=== PATIENT | female | born 1935 | race Caucasian/White ===

== ENCOUNTER 2017-03-03 14:33 | Inpatient (IN) | payer OTHER ==
[~2017-03-03] VITALS: Ht 160 cm; Wt 53.5 kg
[2017-03-03] MEDS ORDERED: IV NORMAL SALINE 500ML BAG 500 ML IV ONE (14:45)
[2017-03-03] MEDS ORDERED: IPRATRPIUM/ALBUTEROL 0.5/2.5MG 3 ML NEBU. NEB ONE (14:45)
--- NOTE | 2017-03-03 14:57 | PHYS DOC ---
Adult General Chief Complaint Chief Complaint: SHORTNESS OF BREATH HPI HPI 81-year-old female presenting to the emergency department today with worsening cough shortness of breath. She was originally seen in urgent care who transferred her here and she presents today by EMS. She has received duo nebs twice at urgent care along with 125 mg of IV Solu-Medrol. Her shortness of breath is worse with exertion improved with rest. It is associated with a productive cough. She is coughing up green sputum. She denies noting any fevers at home however hasn't taken her temperature. Review of systems is negative for chest pain abdominal pain nausea vomiting diarrhea. All other review of systems is negative unless otherwise noted in history of present illness. Review of Systems Review of Systems SEE ABOVE. Current Medications Current Medications Current Medications Medications (Trade) Dose Ordered Sig/Maximino Start Time Stop Time Status Last Admin Dose Admin Albuterol/ Ipratropium 3 ml 3 ml 1X ONCE 03/03/17 14:45 03/03/17 15:22 DC 03/03/17 15:12 3 ML Azithromycin 250 ml @ 250 mls/hr 1X ONCE 03/03/17 15:30 03/03/17 16:29 Ceftriaxone Sodium 50 ml @ 100 mls/hr 1X ONCE 03/03/17 15:30 03/03/17 15:59 Morphine Sulfate 2 mg PRN Q2HR PRN 03/03/17 15:30 03/04/17 15:29 Ondansetron HCl (Zofran) 4 mg PRN Q8HRS PRN 03/03/17 15:30 03/04/17 15:29 Sodium Chloride (Iv Sodium Chloride 0.9% 500ml Bag) 500 ml @ 500 mls/hr 1X ONCE 03/03/17 14:45 03/03/17 15:44 Allergies Allergies Allergies Coded Allergies Type Severity Reaction Last Updated Verified No Known Drug Allergies 03/03/17 No Physical Exam Physical Exam Constitutional: Well developed, well nourished, no acute distress, non-toxic appearance. Patient is breathing comfortably in the examination room on 3 L nasal cannula. Patient is not carry oxygen at home. HENT: Normocephalic, atraumatic, bilateral external ears normal, oropharynx moist, no oral exudates, nose normal. [] Eyes: PERRLA, EOMI, conjunctiva normal, no discharge. [] Neck: Normal range of motion, no tenderness, supple, no stridor. Cardiovascular: Tachycardic with a regular rhythm., no murmur [] Lungs & Thorax: Wheezing present worse on the right. No crackles. Abdomen: Bowel sounds normal, soft, no tenderness, no masses, no pulsatile masses. [] Skin: Warm, dry, no erythema, no rash. Back: No tenderness, no CVA tenderness. [] Extremities: No tenderness, no cyanosis, no clubbing, ROM intact, no edema. [] Neurologic: Alert and oriented X 3, normal motor function, normal sensory function, no focal deficits noted. [] Psychologic: Affect normal, judgement normal, mood normal. [] Current Patient Data Vital Signs Vital Signs Date Time Temp Pulse Resp B/P Pulse Ox O2 Delivery O2 Flow Rate FiO2 03/03/17 15:12 95 Nasal Cannula 3.0 EKG EKG [] Radiology/Procedures Radiology/Procedures Chest x-ray taken on March [id number] at approximately 1340 at urgent care clinic [facility] sent along with the patient here reviewed by myself shows right lower lobe pneumonia. Course & Med Decision Making Course & Med Decision Making Pertinent Labs and Imaging studies reviewed. (See chart for details) [] 81-year-old female presenting to the emergency department today after having shortness of breath and cough. Signs and symptoms initially suggestive of possible pneumonia. Vital signs showed that the patient was tachycardic and saturating in the low 90s on 3 L nasal cannula. Pertinent physical exam findings showed wheezing on pulmonary auscultation more on the right than the left. Chest x-ray confirms right lower lobe pneumonia Patient was ordered a DuoNeb in the emergency department, she received IV steroids prior to arrival, and I ordered her antibiotics given her productive cough tachycardia. Dragon Disclaimer Dragon Disclaimer This electronic medical record was generated, in whole or in part, using a voice recognition dictation system. Departure Departure Impression: Primary Impression: PNA (pneumonia) Additional Impression: Sepsis Disposition: 09 ADMITTED INPATIENT Admitting Physician: Jorge A Marquez Condition: STABLE Referrals: HARRY MARQUEZ MD (PCP) Problem Qualifiers Primary Impression: PNA (pneumonia) Pneumonia type: due to unspecified organism Laterality: right Lung location : lower lobe of lung Qualified Code: J18.1 - Lobar pneumonia, unspecified organism MAI JIMÉNEZ MD Mar 03, 2017 14:57
[2017-03-03] MEDS ORDERED: IPRATRPIUM/ALBUTEROL 0.5/2.5MG 3 ML NEBU. ONE (15:11)
[2017-03-03 15:24] LABS: BASO # 0.1 x10^3/uL (0.0-0.2); BASO % 0 % (0-3); EOS % 0 % (0-3); HEMATOCRIT 47.9 % (36.0-47.0); HEMOGLOBIN 15.8 g/dL (12.0-15.5); LYMPH % 6 % (24-48); MEAN CORPUSCULAR HEMOGLOBIN 30 pg (25-35); MEAN CORPUSCULAR HGB CONC 33 g/dL (31-37); MEAN CORPUSCULAR VOLUME 90 fL (79-100); MONO % 6 % (0-9); NEUT % 87 % (31-73); PLATELET COUNT 309 x10^3/uL (140-400); RED BLOOD COUNT 5.31 x10^6/uL (3.50-5.40); RED CELL DISTRIBUTION WIDTH 13.2 % (11.5-14.5); WHITE BLOOD COUNT 15.9 x10^3/uL (4.0-11.0)
--- NOTE | 2017-03-03 15:28 | EKG ---
[facility] [address] [place] [address] Test Date: 2017-03-03 Test Time: 15:07:33 Pat Name: AKSHAT HACKETT Department: Room: Gender: F [employer]: : 1935 Requested By: MAI JIMÉNEZ Order Number: [id number] Reading MD: Zhen Sinha Measurements Intervals [place] Rate: 118 P: 67 NE: 122 QRS: 5 QRSD: 66 T: 34 QT: 322 QTc: 454 Interpretive Statements SINUS TACHYCARDIA PAC Electronically Signed On 03-04-2017 9:55:10 CDT by Zhen Sinha
[2017-03-03] MEDS ORDERED: AZITHRMYCN 500MG IVPB FOR OMNI 250 ML IV ONE (15:30)
[2017-03-03] MEDS ORDERED: MORPHINE SULFATE 2 MG/ML DISP.SYRIN. IV PRN (15:30)
[2017-03-03] MEDS ORDERED: CEFTRIAXONE 1GM IVPB FOR OMNI 50 ML IV ONE ×2 (15:30→16:45)
[2017-03-03] MEDS ORDERED: ONDANSETRON PF 4 MG/2 ML VIAL. IV PRN (15:30)
[2017-03-03 15:47] LABS: CALCIUM 9.9 mg/dL (8.5-10.1); CREATININE 0.8 mg/dL (0.6-1.0); GFR 68.7; POTASSIUM 3.8 mmol/L (3.5-5.1)
[2017-03-03 15:52] LABS: ALBUMIN 3.8 g/dL (3.4-5.0); DIRECT BILIRUBIN 0.2 mg/dL (0.0-0.2); TOTAL BILIRUBIN 0.6 mg/dL (0.2-1.0); TOTAL PROTEIN 8.7 g/dL (6.4-8.2)
--- NOTE | 2017-03-03 16:36 | ACF ---
Admission Forms Criteria PNEUMONIA, COMMUNITY ACQUIRED Clinical Indications for Admission to Inpatient Care ( Place 'X' for any and all applicable criteria): Admission is indicated for ANY ONE of the following (1)(2)(3): [ ]I. Hypoxemia indicated by ANY ONE of the following: [ ]a) Oxygen saturation less than 90% while breathing room air [ ]b) PO2 less than 60 mm Hg (8.0 kPa) while breathing room air [ ]c) Chronic lung disease with significant deterioration from baseline oxygenation [ ]II. Appropriate diagnostic testing and treatment unavailable in outpatient or recovery facility (eg,testing or infection control measures unavailable(10) [ ]III. Moderate-risk or high-risk category patients (Pneumonia Severity Index (PSI) class IV or V, or CURB-65 score of 3 or greater). [ ]IV. Outpatient treatment failure as indicated by ANY ONE of the following(9) : [ ]a) Failure to respond to antibiotic (eg, resistant organism) [ ]b) Clinically significant adverse effects from medication (eg, vomiting) [ ]c) Complications of pneumonia (eg, empyema, bacteremia) [ ]d) Significant worsening of comorbid cond necessitating inpatient care (eg, chronic heart failure) [X]V. Intermediate-risk category patients (eg, PSI class III or CURB-65 score 2) who do not improve with initial therapy and observation. [ ]. Immunocompromised patients (eg, AIDS, chronic steroid use) at moderate or high risk based on clinical evaluation. [ ]VII. Complicated pleural effusions (eg, exudative, loculated) [ ]VIII.Hemodynamic instability [ ] IX. Altered mental status that is severe or persistent. [ ]X. Dehydration that is severe or persistent. [ ]XI. Bacteremia [ ]XII. Respiratory finding (eg. tachypnea) that do not respond to outpatient or observation care treatment Extended stay beyond goal length of stay may be needed for (20) [ ]a) Unclear diagnosis [ ]b) Pleural disease [ ]c) Severe pneumonia or treatment failure (25 [ ]d) Respiratory failure (anticipate invasive or noninvasive ventilatory support) [ ]e) Abnormal serum electrolytes (serum Na concentration less than 135 mEq/L (mmol/L) (32)(33) [ ]f) Clinically significant comorbid illness (eg, heart failure, atrial fibrillation with rapid heart rate, alcohol withdrawal, renal insufficiency)(34)(35) [ ]g) Comorbid acute exacerbation of COPD(36) [ ]h) Concomitant diagnosis of malignancy that may be associated with malnutrition, immunologic impairment, or bronchial obstruction. [ ]i) Concomitant altered mental status [ ]j) Culture-identified Gram-negative or antibiotic-resistant organism (eg, Pseudomonas, methicillin-resistant Staphylococcus aureus)(30) [ ]k) Healthcare-associated pneumonia The original [facility] content created by [employer] has been revised. The portions of the content which have been revised are identified through the use of italic text or in bold, and [facility] has neither reviewed nor approved the modified material. All other unmodified content is copyright [facility]. Please see references footnoted in the original [facility] edition 2016 Admission Criteria Met?: Yes MARTINE CELAYA Mar 03, 2017 16:36
[2017-03-03] MEDS ORDERED: ACETAMINOPHEN 325 MG TABLET. PO ONE (17:15)
[2017-03-03 17:44] LABS: % BASOS 3 % (0-3)
[2017-03-03 17:45] LABS: POLYCHROMASIA SLIGHT
[2017-03-03 17:47] LABS: HYPOCHROMIA SLIGHT; OVALOCYTES OCC
[2017-03-03 18:05] LABS: PLT ESTIMATE ADEQUATE (ADEQUATE)
[2017-03-03] MEDS ORDERED: ALBUTEROL SULFATE 2.5 MG/3 ML NEBU. NEB PRN (19:15)
[2017-03-03] MEDS: IPRATRPIUM/ALBUTEROL 0.5/2.5MG 3 ML NEBU. NEB SCH (20:02)
[2017-03-03] MEDS: methylPREDNISolone SOD SUCC PF 125 MG/2 ML VIAL. IV SCH (21:11)
[2017-03-03 22:00] VITALS: BP 114/53
[2017-03-03 23:00] VITALS: BP 118/81
[2017-03-03] MEDS ORDERED: CHOL100013 PO (23:25)
[2017-03-03] MEDS ORDERED: ASPI-482 PO (23:25)
[2017-03-03] MEDS ORDERED: LOVA20TA2 PO (23:26)
[2017-03-03] MEDS ORDERED: ALEN70TA3 PO (23:28)
[2017-03-04 03:00] VITALS: BP 110/76
[2017-03-04 04:26] LABS: BASO % 0 % (0-3); EOS % 0 % (0-3); HEMATOCRIT 37.6 % (36.0-47.0); HEMOGLOBIN 12.5 g/dL (12.0-15.5); LYMPH # 1.3 x10^3/uL (1.0-4.8); LYMPH % 8 % (24-48); MEAN CORPUSCULAR HEMOGLOBIN 30 pg (25-35); MEAN CORPUSCULAR HGB CONC 33 g/dL (31-37); MEAN CORPUSCULAR VOLUME 89 fL (79-100); MONO % 4 % (0-9); NEUT % 88 % (31-73); PLATELET COUNT 279 x10^3/uL (140-400); RED BLOOD COUNT 4.22 x10^6/uL (3.50-5.40); RED CELL DISTRIBUTION WIDTH 13.2 % (11.5-14.5); WHITE BLOOD COUNT 16.8 x10^3/uL (4.0-11.0)
[2017-03-04 04:40] LABS: CREATININE 0.7 mg/dL (0.6-1.0); GFR 80.1; POTASSIUM 3.9 mmol/L (3.5-5.1)
[2017-03-04] MEDS: IPRATRPIUM/ALBUTEROL 0.5/2.5MG 3 ML NEBU. NEB SCH ×4 (06:50→18:03)
[2017-03-04 07:00] VITALS: BP 105/52
[2017-03-04] MEDS: methylPREDNISolone SOD SUCC PF 125 MG/2 ML VIAL. IV SCH ×2 (09:00→21:02)
--- NOTE | 2017-03-04 09:30 | PDOC ---
Provider Note Provider Note dictated THAI MCKEON MD Mar 04, 2017 09:30
[2017-03-04] MEDS: AZITHROMYCIN 250 MG TABLET. PO SCH (10:00)
--- NOTE | 2017-03-04 10:31 | CONS ---
DATE OF CONSULTATION: ATTENDING PHYSICIAN: Dr. Isadora Bernal REASON FOR CONSULTATION: Pneumonia and hypoxia, respiratory failure. HISTORY OF PRESENT ILLNESS: The patient is an 81-year-old female who has been a smoker for 25 years. She quit 20 years ago. She started having a cough for the last 4-5 days, which has been mostly productive of white sputum. No obvious fever. She was seen at the urgent care with some shortness of breath with coughing as well. The patient had a chest x-ray done at that facility and was told that she had a right lower lobe pneumonia. The ER physician had reviewed the chest x-ray. She has been hospitalized. There is no x-ray available for my review and it will be ordered. She was placed on nebulizer treatments. She received a dose of Rocephin and Zithromax and has been placed on IV steroids. She feels better currently requiring about 2 liters of oxygen. No history of deep vein thrombosis or pulmonary embolism. No headache. No nausea, vomiting or diarrhea. No focal weakness. PAST MEDICAL HISTORY: Significant for possible underlying COPD. PAST SURGICAL HISTORY: No recent surgeries. ALLERGIES: None. CURRENT MEDICATIONS: Reviewed as listed in the MRAD. REVIEW OF SYSTEMS: Twelve-point systems obtained. Pertinent positives discussed in history of present illness, otherwise noncontributory. All systems that were negative were reviewed as well. SOCIAL HISTORY: Smoked for 25 years before quitting 20 years ago. FAMILY HISTORY: Noncontributory to lungs. PHYSICAL EXAMINATION: VITAL SIGNS: Blood pressure 105/52, afebrile, pulse ox 91% on 2 liters. HEENT: Sclerae nonicteric. NECK: Supple. LUNGS: Diminished breath sounds. No wheezing. CARDIOVASCULAR: Regular rate and rhythm. ABDOMEN: Soft, nontender. EXTREMITIES: With no pitting edema. LABORATORY DATA: Reviewed. White cell count was 15.9 on admission, hemoglobin 15.9 and platelets 47.9. Hemoglobin has dropped to 12.2 today. BUN is 15, and creatinine 0.8. Troponin less than 0.017. IMPRESSION: 1. Dyspnea with acute hypoxic respiratory failure secondary to suspected right lower lobe pneumonia as seen on the chest x-ray done at urgent care facility yesterday. 2. Underlying chronic obstructive pulmonary disease with mild exacerbation. RECOMMENDATIONS: 1. Obtain a chest x-ray. 2. Continue present antibiotics. 3. Wean off oxygen slowly, keep sats 92 and above. 4. Continue with nebulizer treatment. 5. Continue with steroids. 6. Anticipated hospitalization for 48 hours. I appreciate the privilege in providing care of the patient. THAI MCKEON MD DR: ARNOLDO/jorge JOB#: [id number] / [id number] ISADORA Smart MD
--- NOTE | 2017-03-04 10:50 | PDOC ---
PROGRESS NOTES Subjective Subjective Pt awake and pleasant in conversation this am. States labored breathing has improved some. Continues to c/o productive cough and SOB with exertion. Pt states she has a poor appetite, however is eating some. Objective Objective Pt awake and alert. NAD. VSS. Afebrile since admission. Lungs with loose rhonchi and exp wheeze on the right. Resp even and unlabored. Pt on 2L of O2 per NC. Heart with RRR. No murmurs. No pedal edema. Vital Signs Date Time Temp Pulse Resp B/P Pulse Ox O2 Delivery O2 Flow Rate FiO2 03/04/17 08:00 Nasal Cannula 2.0 03/04/17 07:00 97.2 94 20 105/52 91 97.2 Intake and Output 03/04/17 06:59 Intake Total 1400 ml Balance 1400 ml Intake Oral 600 ml IV Total 800 ml # Voids 1 Assessment Assessment Problems Medical Problems: (1) CAP (community acquired pneumonia) Status: Acute (2) PNA (pneumonia) Status: Acute (3) Sepsis Status: Acute Plan Plan of Care 1. CAP -CXR: right lower lobe pneumonia -WBC 16K this am -Rocephin, Zithromax, Duonebs and Solu Medrol -Pt on 2L of O2 per NC to maintain sats >90% Comment Review of Relevant I have reviewed the following items elodia (where applicable) has been applied. Labs Laboratory Tests Test 03/03/17 14:20 03/04/17 03:46 03/04/17 04:30 White Blood Count 15.9x10^3/uL (4.0-11.0) 16.8x10^3/uL (4.0-11.0) Red Blood Count 5.31x10^6/uL (3.50-5.40) 4.22x10^6/uL (3.50-5.40) Hemoglobin 15.8g/dL (12.0-15.5) 12.5g/dL (12.0-15.5) Hematocrit 47.9% (36.0-47.0) 37.6% (36.0-47.0) Mean Corpuscular Volume 90fL (79-100) 89fL (79-100) Mean Corpuscular Hemoglobin 30pg (25-35) 30pg (25-35) Mean Corpuscular Hemoglobin Concent 33g/dL (31-37) 33g/dL (31-37) Red Cell Distribution Width 13.2% (11.5-14.5) 13.2% (11.5-14.5) Platelet Count 309x10^3/uL (140-400) 279x10^3/uL (140-400) Neutrophils (%) (Auto) 87% (31-73) 88% (31-73) Lymphocytes (%) (Auto) 6% (24-48) 8% (24-48) Monocytes (%) (Auto) 6% (0-9) 4% (0-9) Eosinophils (%) (Auto) 0% (0-3) 0% (0-3) Basophils (%) (Auto) 0% (0-3) 0% (0-3) Neutrophils # (Auto) 13.8x10^3uL (1.8-7.7) 14.8x10^3uL (1.8-7.7) Lymphocytes # (Auto) 1.0x10^3/uL (1.0-4.8) 1.3x10^3/uL (1.0-4.8) Monocytes # (Auto) 1.0x10^3/uL (0.0-1.1) 0.6x10^3/uL (0.0-1.1) Eosinophils # (Auto) 0.0x10^3/uL (0.0-0.7) 0.0x10^3/uL (0.0-0.7) Basophils # (Auto) 0.1x10^3/uL (0.0-0.2) 0.0x10^3/uL (0.0-0.2) Segmented Neutrophils % 78% (35-66) Lymphocytes % 13% (24-48) Monocytes % 6% (0-10) Basophils % 3% (0-3) Platelet Estimate Adequate (ADEQUATE) Large Platelets Occ Polychromasia Slight Hypochromasia Slight Ovalocytes Occ Sodium Level 141mmol/L (136-145) 143mmol/L (136-145) Potassium Level 3.8mmol/L (3.5-5.1) 3.9mmol/L (3.5-5.1) Chloride Level 101mmol/L (98-107) 107mmol/L (98-107) Carbon Dioxide Level 24mmol/L (21-32) 25mmol/L (21-32) Anion Gap 16 (6-14) 11 (6-14) Blood Urea Nitrogen 15mg/dL (7-20) 14mg/dL (7-20) Creatinine 0.8mg/dL (0.6-1.0) 0.7mg/dL (0.6-1.0) Estimated GFR (Cockcroft-Gault) 68.7 80.1 Glucose Level 171mg/dL (70-99) 215mg/dL (70-99) Lactic Acid Level 2.5mmol/L (0.4-2.0) Calcium Level 9.9mg/dL (8.5-10.1) 9.0mg/dL (8.5-10.1) Total Bilirubin 0.6mg/dL (0.2-1.0) Direct Bilirubin 0.2mg/dL (0.0-0.2) Aspartate Amino Transf (AST/SGOT) 24U/L (15-37) Alanine Aminotransferase (ALT/SGPT) 32U/L (14-59) Alkaline Phosphatase 91U/L (46-116) Troponin I Quantitative < 0.017ng/mL (0.000-0.055) IO-Kzf-T-Type Natriuretic Peptide 154pg/mL (0-449) Total Protein 8.7g/dL (6.4-8.2) Albumin 3.8g/dL (3.4-5.0) Lipase 160U/L (73-393) Laboratory Tests Test 03/03/17 14:20 03/04/17 03:46 03/04/17 04:30 White Blood Count 15.9x10^3/uL (4.0-11.0) 16.8x10^3/uL (4.0-11.0) Red Blood Count 5.31x10^6/uL (3.50-5.40) 4.22x10^6/uL (3.50-5.40) Hemoglobin 15.8g/dL (12.0-15.5) 12.5g/dL (12.0-15.5) Hematocrit 47.9% (36.0-47.0) 37.6% (36.0-47.0) Mean Corpuscular Volume 90fL (79-100) 89fL (79-100) Mean Corpuscular Hemoglobin 30pg (25-35) 30pg (25-35) Mean Corpuscular Hemoglobin Concent 33g/dL (31-37) 33g/dL (31-37) Red Cell Distribution Width 13.2% (11.5-14.5) 13.2% (11.5-14.5) Platelet Count 309x10^3/uL (140-400) 279x10^3/uL (140-400) Neutrophils (%) (Auto) 87% (31-73) 88% (31-73) Lymphocytes (%) (Auto) 6% (24-48) 8% (24-48) Monocytes (%) (Auto) 6% (0-9) 4% (0-9) Eosinophils (%) (Auto) 0% (0-3) 0% (0-3) Basophils (%) (Auto) 0% (0-3) 0% (0-3) Neutrophils # (Auto) 13.8x10^3uL (1.8-7.7) 14.8x10^3uL (1.8-7.7) Lymphocytes # (Auto) 1.0x10^3/uL (1.0-4.8) 1.3x10^3/uL (1.0-4.8) Monocytes # (Auto) 1.0x10^3/uL (0.0-1.1) 0.6x10^3/uL (0.0-1.1) Eosinophils # (Auto) 0.0x10^3/uL (0.0-0.7) 0.0x10^3/uL (0.0-0.7) Basophils # (Auto) 0.1x10^3/uL (0.0-0.2) 0.0x10^3/uL (0.0-0.2) Segmented Neutrophils % 78% (35-66) Lymphocytes % 13% (24-48) Monocytes % 6% (0-10) Basophils % 3% (0-3) Platelet Estimate Adequate (ADEQUATE) Large Platelets Occ Polychromasia Slight Hypochromasia Slight Ovalocytes Occ Sodium Level 141mmol/L (136-145) 143mmol/L (136-145) Potassium Level 3.8mmol/L (3.5-5.1) 3.9mmol/L (3.5-5.1) Chloride Level 101mmol/L (98-107) 107mmol/L (98-107) Carbon Dioxide Level 24mmol/L (21-32) 25mmol/L (21-32) Anion Gap 16 (6-14) 11 (6-14) Blood Urea Nitrogen 15mg/dL (7-20) 14mg/dL (7-20) Creatinine 0.8mg/dL (0.6-1.0) 0.7mg/dL (0.6-1.0) Estimated GFR (Cockcroft-Gault) 68.7 80.1 Glucose Level 171mg/dL (70-99) 215mg/dL (70-99) Lactic Acid Level 2.5mmol/L (0.4-2.0) Calcium Level 9.9mg/dL (8.5-10.1) 9.0mg/dL (8.5-10.1) Total Bilirubin 0.6mg/dL (0.2-1.0) Direct Bilirubin 0.2mg/dL (0.0-0.2) Aspartate Amino Transf (AST/SGOT) 24U/L (15-37) Alanine Aminotransferase (ALT/SGPT) 32U/L (14-59) Alkaline Phosphatase 91U/L (46-116) Troponin I Quantitative < 0.017ng/mL (0.000-0.055) DK-Wwo-L-Type Natriuretic Peptide 154pg/mL (0-449) Total Protein 8.7g/dL (6.4-8.2) Albumin 3.8g/dL (3.4-5.0) Lipase 160U/L (73-393) Medications Current Medications Albuterol/ Ipratropium 3 ml 3 ml 1X ONCE NEB Last administered on 03/03/17 15: 12; Start 03/03/17 at 14:45; Stop 03/03/17 at 15:22; Status DC Azithromycin 250 ml @ 250 mls/hr 1X ONCE IV Last administered on 03/03/17 15: 45; Start 03/03/17 at 15:30; Stop 03/03/17 at 16:29; Status DC Ceftriaxone Sodium 50 ml @ 100 mls/hr 1X ONCE IV Last administered on 17:09; Start 03/03/17 at 15:30; Stop 03/03/17 at 15:59; Status DC Sodium Chloride (Iv Sodium Chloride 0.9% 500ml Bag) 500 ml @ 500 mls/hr 1X ONCE IV Last administered on 03/03/17 15:44; Start 03/03/17 at 14:45; Stop at 15:44; Status DC Ondansetron HCl (Zofran) 4 mg PRN Q8HRS PRN IV NAUSEA/VOMITING; Start 03/03/17 at 15:30; Stop 03/04/17 at 15:29 Morphine Sulfate 2 mg 2 mg PRN Q2HR PRN IV PAIN; Start 03/03/17 at 15:30; Stop 03/04/17 at 15:29 Ceftriaxone Sodium (Rocephin 1gm Ivpb For Omni) 50 ml @ 100 mls/hr 1X ONCE IV ; Start 03/03/17 at 16:45; Stop 03/03/17 at 17:14; Status Cancel Acetaminophen (Tylenol) 650 mg 1X ONCE PO Last administered on 03/03/17 17:13 ; Start 03/03/17 at 17:15; Stop 03/03/17 at 17:16; Status DC Albuterol/ Ipratropium (Duoneb) 3 ml RTQID NEB Last administered on 03/04/17 06 :50; Start 03/03/17 at 20:00 Albuterol Sulfate (Ventolin Neb Soln) 2.5 mg PRN Q4HRS PRN NEB SHORTNESS OF BREATH Last administered on 03/03/17 23:13; Start 03/03/17 at 19:15 Methylprednisolone Sodium Succinate 62.5 mg 62.5 mg BID IV Last administered on 03/03/17 21:11; Start 03/03/17 at 20:00 Ceftriaxone Sodium/Sodium Chloride (Rocephin/Iv Sodium Chloride 0.9% 50ml) 50 ml @ 100 mls/hr Q24H IV ; Start 03/04/17 at 16:00 Azithromycin (Zithromax) 250 mg DAILY PO ; Start 03/04/17 at 10:00 Active Scripts Active Reported Fosamax (Alendronate Sodium) 70 Mg Tablet 1 Tab PO WEEKLY Lovastatin 20 Mg Tablet 20 Mg PO HS Vitamin D (Cholecalciferol (Vitamin D3)) 1,000 Unit Capsule 1 Cap PO DAILY Aspir 81 (Aspirin) 81 Mg Tablet. 1 Tab PO DAILY Vitals/I & O Vital Sign - Last 24 Hours 03/03/17 03/03/17 03/03/17 03/03/17 14:40 15:12 15:17 15:47 Temp 98.8 98.8 Pulse 123 116 112 Resp 18 13 20 B/P 157/67 139/72 130/62 Pulse Ox 94 95 95 96 O2 Delivery Nasal Cannula Nasal Cannula Nasal Cannula Nasal Cannula O2 Flow Rate 2 3.0 2 2 03/03/17 03/03/17 03/03/17 03/03/17 16:17 16:47 17:41 17:47 Pulse 110 110 116 112 Resp 13 20 21 12 B/P 133/60 117/56 108/53 114/53 Pulse Ox 95 97 95 94 O2 Delivery Nasal Cannula Nasal Cannula Nasal Cannula Nasal Cannula O2 Flow Rate 2 2 2 2 03/03/17 03/03/17 03/03/17 03/03/17 20:04 21:32 22:00 23:00 Temp 98.8 97.6 98.8 97.6 Pulse 112 96 Resp 18 B/P 114/53 118/81 Pulse Ox 92 92 94 O2 Delivery Nasal Cannula Nasal Cannula Nasal Cannula Nasal Cannula O2 Flow Rate 2.0 2.0 2.0 2.0 03/03/17 03/04/17 03/04/17 03/04/17 23:13 03:00 06:55 07:00 Temp 98.0 97.2 98.0 97.2 Pulse 98 94 Resp 20 20 B/P 110/76 105/52 Pulse Ox 93 93 94 91 O2 Delivery Nasal Cannula Nasal Cannula Room Air Nasal Cannula O2 Flow Rate 2.0 2.0 2.0 03/04/17 08:00 O2 Delivery Nasal Cannula O2 Flow Rate 2.0 Intake and Output 03/03/17 03/03/17 03/04/17 14:59 22:59 06:59 Intake Total 800 ml 600 ml Balance 800 ml 600 ml ISADORA GARCIA MD Mar 04, 2017 10:50
--- NOTE | 2017-03-04 11:17 | HP ---
ADMIT DATE: 03/03/2017 CHIEF COMPLAINT AND HISTORY OF PRESENT ILLNESS: This is an 81-year-old female who is a patient of Dr. Yudith Hunt, which I will be following throughout her hospital stay. The patient presented to the Emergency Room following an urgent care visit for shortness of breath and hypoxia. The patient presented to the Urgent Care complaining of a 10-day history of not feeling well and a 4-to 5-day history of progressive shortness of breath with exertion and activities of daily living. Upon evaluation in the Urgent Care, the patient was found to have a right lower lobe pneumonia. Oxygen saturations were low, and the patient was given 2 DuoNeb treatments at the Urgent Care, was unable to maintain saturations greater than 90%, and therefore, the patient was transferred to our Emergency Room by ambulance. Upon evaluation in the Emergency Room, the right lower lobe pneumonia was confirmed. A WBC of 15,000 was identified. The patient was given Solu-Medrol as well as a repeat DuoNeb treatment in the Emergency Room and was admitted to the hospital for community-acquired pneumonia. PAST MEDICAL HISTORY: COPD. PAST SURGICAL HISTORY: No recent surgeries. ALLERGIES: No known drug allergies. REVIEW OF SYSTEMS: As mentioned above. PHYSICAL EXAMINATION: GENERAL: The patient is a well-developed, well-nourished, 81-year-old female who is in no apparent distress on the morning of my examination. VITAL SIGNS: Stable. She has been afebrile since admission. HEENT: Head, Eyes, Ears, Nose, and Throat are unremarkable. NECK: Supple without adenopathy or thyromegaly. CHEST: Loose rhonchi and an expiratory wheeze are present in the right lung bases. The patient is currently on O2 at 2 liters per nasal cannula to maintain the saturations greater than 90%. Respirations are even and unlabored without retractions present. HEART: Regular rate and rhythm without S3, S4, or murmur. ABDOMEN: Soft, nontender without hepatosplenomegaly or mass. NEUROLOGIC: Grossly intact. IMPRESSION: Community-acquired pneumonia in the right lower lung. PLAN: The patient has been admitted as mentioned above. IV Rocephin and Zithromax have been initiated. The patient will continue on DuoNeb treatments as well as Solu-Medrol. The patient will receive O2 per nasal cannula to maintain saturations greater than 90%. Pulmonology has been consulted. We will continue to monitor, manage, and treat the patient appropriately throughout her hospital stay. ISADORA GARCIA MD DR: GARRY/jorge JOB#: [id number] / [id number]
[2017-03-04 11:28] VITALS: BP 105/58
[2017-03-04] MEDS: CEFTRIAXONE SODIUM 1 GM in IV NORMAL SALINE 50ML 50 ML IV SCH (14:48)
[2017-03-04 14:49] VITALS: BP 107/57
--- NOTE | 2017-03-04 15:06 | RAD ---
Portable chest, 03/04/2017: History: Pneumonia Comparison is made to a study from 01/17/2012. The heart size is normal. There is calcific plaquing of the aorta. There is minimal parenchymal scarring. No acute infiltrate is seen. There is no evidence of pleural fluid. IMPRESSION: No acute cardiopulmonary abnormality is detected.
[2017-03-04 19:00] VITALS: BP 110/60
[2017-03-04 23:00] VITALS: BP 117/64
[2017-03-05 03:17] VITALS: BP 115/77
[2017-03-05 07:00] VITALS: BP 128/64
[2017-03-05] MEDS: IPRATRPIUM/ALBUTEROL 0.5/2.5MG 3 ML NEBU. NEB SCH ×4 (07:01→19:38)
[2017-03-05 07:04] LABS: HEMATOCRIT 36.8 % (36.0-47.0); HEMOGLOBIN 12.1 g/dL (12.0-15.5); RED BLOOD COUNT 4.1 x10^6/uL (3.50-5.40); RED CELL DISTRIBUTION WIDTH 13.2 % (11.5-14.5); WHITE BLOOD COUNT 22.4 x10^3/uL (4.0-11.0)
[2017-03-05] MEDS: AZITHROMYCIN 250 MG TABLET. PO SCH (08:46)
[2017-03-05] MEDS: methylPREDNISolone SOD SUCC PF 125 MG/2 ML VIAL. IV SCH ×2 (08:46→21:02)
--- NOTE | 2017-03-05 11:04 | PDOC ---
PROGRESS NOTES Subjective Subjective Pt awake and pleasant. States she is feeling better, however continues to c/o weakness and bad cough. Pt states her appetite is returning and her output has been good. Objective Objective Pt awake and alert. NAD. VSS. Febrile with tmax of 99.5. Lungs with loose rhonchi and mild expiratory wheeze. Resp even and unlabored. Pt on 2L of O2 per NC. Heart with RRR. No murmurs. Vital Signs Date Time Temp Pulse Resp B/P Pulse Ox O2 Delivery O2 Flow Rate FiO2 03/05/17 07:02 92 Nasal Cannula 2.0 03/05/17 07:00 98.1 93 18 128/64 98.1 Intake and Output 03/05/17 07:00 Intake Total 1080 ml Output Total 800 ml Balance 280 ml Intake Oral 1030 ml IV Total 50 ml Output Urine Total 800 ml # Voids 4 Assessment Assessment Problems Medical Problems: (1) CAP (community acquired pneumonia) Status: Acute (2) PNA (pneumonia) Status: Acute (3) Sepsis Status: Acute Plan Plan of Care 1. CAP -CXR at : right lower lobe pneumonia. Repeat CXR on 03/04:No acute cardiopulmonary abnormality is detected. -WBC 22K this am, trending up -Blood cx negative to date. -Rocephin, Zithromax, Duonebs and Solu Medrol -Tessalon pearles 200mg tid prn cough -Pt on 2L of O2 per NC to maintain sats >90% -Pulmonary consulting PT consulted to begin mobilizing pt. Comment Review of Relevant I have reviewed the following items elodia (where applicable) has been applied. Labs Laboratory Tests Test 03/03/17 14:20 03/04/17 03:46 03/04/17 04:30 03/05/17 06:30 White Blood Count 15.9x10^3/uL (4.0-11.0) 16.8x10^3/uL (4.0-11.0) 22.4x10^3/uL (4.0-11.0) Red Blood Count 5.31x10^6/uL (3.50-5.40) 4.22x10^6/uL (3.50-5.40) 4.10x10^6/uL (3.50-5.40) Hemoglobin 15.8g/dL (12.0-15.5) 12.5g/dL (12.0-15.5) 12.1g/dL (12.0-15.5) Hematocrit 47.9% (36.0-47.0) 37.6% (36.0-47.0) 36.8% (36.0-47.0) Mean Corpuscular Volume 90fL (79-100) 89fL (79-100) 90fL (79-100) Mean Corpuscular Hemoglobin 30pg (25-35) 30pg (25-35) 30pg (25-35) Mean Corpuscular Hemoglobin Concent 33g/dL (31-37) 33g/dL (31-37) 33g/dL (31-37) Red Cell Distribution Width 13.2% (11.5-14.5) 13.2% (11.5-14.5) 13.2% (11.5-14.5) Platelet Count 309x10^3/uL (140-400) 279x10^3/uL (140-400) 360x10^3/uL (140-400) Neutrophils (%) (Auto) 87% (31-73) 88% (31-73) Lymphocytes (%) (Auto) 6% (24-48) 8% (24-48) Monocytes (%) (Auto) 6% (0-9) 4% (0-9) Eosinophils (%) (Auto) 0% (0-3) 0% (0-3) Basophils (%) (Auto) 0% (0-3) 0% (0-3) Neutrophils # (Auto) 13.8x10^3uL (1.8-7.7) 14.8x10^3uL (1.8-7.7) Lymphocytes # (Auto) 1.0x10^3/uL (1.0-4.8) 1.3x10^3/uL (1.0-4.8) Monocytes # (Auto) 1.0x10^3/uL (0.0-1.1) 0.6x10^3/uL (0.0-1.1) Eosinophils # (Auto) 0.0x10^3/uL (0.0-0.7) 0.0x10^3/uL (0.0-0.7) Basophils # (Auto) 0.1x10^3/uL (0.0-0.2) 0.0x10^3/uL (0.0-0.2) Segmented Neutrophils % 78% (35-66) Lymphocytes % 13% (24-48) Monocytes % 6% (0-10) Basophils % 3% (0-3) Platelet Estimate Adequate (ADEQUATE) Large Platelets Occ Polychromasia Slight Hypochromasia Slight Ovalocytes Occ Sodium Level 141mmol/L (136-145) 143mmol/L (136-145) Potassium Level 3.8mmol/L (3.5-5.1) 3.9mmol/L (3.5-5.1) Chloride Level 101mmol/L (98-107) 107mmol/L (98-107) Carbon Dioxide Level 24mmol/L (21-32) 25mmol/L (21-32) Anion Gap 16 (6-14) 11 (6-14) Blood Urea Nitrogen 15mg/dL (7-20) 14mg/dL (7-20) Creatinine 0.8mg/dL (0.6-1.0) 0.7mg/dL (0.6-1.0) Estimated GFR (Cockcroft-Gault) 68.7 80.1 Glucose Level 171mg/dL (70-99) 215mg/dL (70-99) Lactic Acid Level 2.5mmol/L (0.4-2.0) Calcium Level 9.9mg/dL (8.5-10.1) 9.0mg/dL (8.5-10.1) Total Bilirubin 0.6mg/dL (0.2-1.0) Direct Bilirubin 0.2mg/dL (0.0-0.2) Aspartate Amino Transf (AST/SGOT) 24U/L (15-37) Alanine Aminotransferase (ALT/SGPT) 32U/L (14-59) Alkaline Phosphatase 91U/L (46-116) Troponin I Quantitative < 0.017ng/mL (0.000-0.055) IN-Qpa-R-Type Natriuretic Peptide 154pg/mL (0-449) Total Protein 8.7g/dL (6.4-8.2) Albumin 3.8g/dL (3.4-5.0) Lipase 160U/L (73-393) Laboratory Tests Test 03/05/17 06:30 White Blood Count 22.4x10^3/uL (4.0-11.0) Red Blood Count 4.10x10^6/uL (3.50-5.40) Hemoglobin 12.1g/dL (12.0-15.5) Hematocrit 36.8% (36.0-47.0) Mean Corpuscular Volume 90fL (79-100) Mean Corpuscular Hemoglobin 30pg (25-35) Mean Corpuscular Hemoglobin Concent 33g/dL (31-37) Red Cell Distribution Width 13.2% (11.5-14.5) Platelet Count 360x10^3/uL (140-400) Microbiology 03/03/17 Blood Culture - Preliminary, Resulted NO GROWTH AFTER 1 DAY Medications Current Medications Albuterol/ Ipratropium 3 ml 3 ml 1X ONCE NEB Last administered on 03/03/17 15: 12; Start 03/03/17 at 14:45; Stop 03/03/17 at 15:22; Status DC Azithromycin 250 ml @ 250 mls/hr 1X ONCE IV Last administered on 03/03/17 15: 45; Start 03/03/17 at 15:30; Stop 03/03/17 at 16:29; Status DC Ceftriaxone Sodium 50 ml @ 100 mls/hr 1X ONCE IV Last administered on 17:09; Start 03/03/17 at 15:30; Stop 03/03/17 at 15:59; Status DC Sodium Chloride (Iv Sodium Chloride 0.9% 500ml Bag) 500 ml @ 500 mls/hr 1X ONCE IV Last administered on 03/03/17 15:44; Start 03/03/17 at 14:45; Stop at 15:44; Status DC Ondansetron HCl (Zofran) 4 mg PRN Q8HRS PRN IV NAUSEA/VOMITING; Start 03/03/17 at 15:30; Stop 03/04/17 at 15:29; Status DC Morphine Sulfate 2 mg 2 mg PRN Q2HR PRN IV PAIN; Start 03/03/17 at 15:30; Stop 03/04/17 at 15:29; Status DC Ceftriaxone Sodium (Rocephin 1gm Ivpb For Omni) 50 ml @ 100 mls/hr 1X ONCE IV ; Start 03/03/17 at 16:45; Stop 03/03/17 at 17:14; Status Cancel Acetaminophen (Tylenol) 650 mg 1X ONCE PO Last administered on 03/03/17 17:13 ; Start 03/03/17 at 17:15; Stop 03/03/17 at 17:16; Status DC Albuterol/ Ipratropium (Duoneb) 3 ml RTQID NEB Last administered on 03/05/17 07 :01; Start 03/03/17 at 20:00 Albuterol Sulfate (Ventolin Neb Soln) 2.5 mg PRN Q4HRS PRN NEB SHORTNESS OF BREATH Last administered on 03/03/17 23:13; Start 03/03/17 at 19:15 Methylprednisolone Sodium Succinate 62.5 mg 62.5 mg BID IV Last administered on 03/05/17 08:46; Start 03/03/17 at 20:00 Ceftriaxone Sodium/Sodium Chloride (Rocephin/Iv Sodium Chloride 0.9% 50ml) 50 ml @ 100 mls/hr Q24H IV Last administered on 03/04/17 14:48; Start 03/04/17 at 16:00 Azithromycin (Zithromax) 250 mg DAILY PO Last administered on 03/05/17 08:46; Start 03/04/17 at 10:00 Albuterol/ Ipratropium (Duoneb) 3 ml STK-MED ONCE .ROUTE ; Start 03/03/17 at 15: 11; Stop 03/04/17 at 11:24; Status DC Active Scripts Active Reported Fosamax (Alendronate Sodium) 70 Mg Tablet 1 Tab PO WEEKLY Lovastatin 20 Mg Tablet 20 Mg PO HS Vitamin D (Cholecalciferol (Vitamin D3)) 1,000 Unit Capsule 1 Cap PO DAILY Aspir 81 (Aspirin) 81 Mg Tablet. 1 Tab PO DAILY Vitals/I & O Vital Sign - Last 24 Hours 03/04/17 03/04/17 03/04/17 03/04/17 11:28 14:43 14:49 18:04 Temp 97.9 98.5 97.9 98.5 Pulse 91 85 Resp 19 20 B/P 105/58 107/57 Pulse Ox 92 92 O2 Delivery Nasal Cannula Nasal Cannula Nasal Cannula Nasal Cannula O2 Flow Rate 2.0 2.0 2.0 2.0 03/04/17 03/04/17 03/04/17 03/05/17 19:00 20:00 23:00 03:17 Temp 98.3 99.5 98.0 98.3 99.5 98.0 Pulse 98 91 95 Resp 20 20 20 B/P 110/60 117/64 115/77 Pulse Ox 91 95 94 O2 Delivery Nasal Cannula Nasal Cannula Nasal Cannula Nasal Cannula O2 Flow Rate 2.0 03/05/17 03/05/17 07:00 07:02 Temp 98.1 98.1 Pulse 93 Resp 18 B/P 128/64 Pulse Ox 96 92 O2 Delivery Nasal Cannula Nasal Cannula O2 Flow Rate 2.0 2.0 Intake and Output 03/04/17 03/04/17 03/05/17 15:00 23:00 07:00 Intake Total 600 ml 480 ml Output Total 800 ml Balance 600 ml -320 ml ISADORA GARCIA MD Mar 05, 2017 11:04
--- NOTE | 2017-03-05 14:46 | PDOC ---
PULMONARY PROGRESS NOTES Subjective FEELS COUGH IS IMPROVING Vitals Vital Signs Date Time Temp Pulse Resp B/P Pulse Ox O2 Delivery O2 Flow Rate FiO2 03/05/17 10:40 92 Nasal Cannula 2.0 03/05/17 07:00 98.1 93 18 128/64 98.1 ROS: No Nausea, No Chest Pain, No Abdominal Pain General: Alert, No acute distress Lungs: Clear Cardiovascular: S1 Abdomen: Soft Neuro Exam: Alert Extremities: No Edema Skin: Warm Labs Laboratory Tests Test 03/04/17 03:46 03/04/17 04:30 03/05/17 06:30 White Blood Count 16.8x10^3/uL (4.0-11.0) 22.4x10^3/uL (4.0-11.0) Red Blood Count 4.22x10^6/uL (3.50-5.40) 4.10x10^6/uL (3.50-5.40) Hemoglobin 12.5g/dL (12.0-15.5) 12.1g/dL (12.0-15.5) Hematocrit 37.6% (36.0-47.0) 36.8% (36.0-47.0) Mean Corpuscular Volume 89fL (79-100) 90fL (79-100) Mean Corpuscular Hemoglobin 30pg (25-35) 30pg (25-35) Mean Corpuscular Hemoglobin Concent 33g/dL (31-37) 33g/dL (31-37) Red Cell Distribution Width 13.2% (11.5-14.5) 13.2% (11.5-14.5) Platelet Count 279x10^3/uL (140-400) 360x10^3/uL (140-400) Neutrophils (%) (Auto) 88% (31-73) Lymphocytes (%) (Auto) 8% (24-48) Monocytes (%) (Auto) 4% (0-9) Eosinophils (%) (Auto) 0% (0-3) Basophils (%) (Auto) 0% (0-3) Neutrophils # (Auto) 14.8x10^3uL (1.8-7.7) Lymphocytes # (Auto) 1.3x10^3/uL (1.0-4.8) Monocytes # (Auto) 0.6x10^3/uL (0.0-1.1) Eosinophils # (Auto) 0.0x10^3/uL (0.0-0.7) Basophils # (Auto) 0.0x10^3/uL (0.0-0.2) Sodium Level 143mmol/L (136-145) Potassium Level 3.9mmol/L (3.5-5.1) Chloride Level 107mmol/L (98-107) Carbon Dioxide Level 25mmol/L (21-32) Anion Gap 11 (6-14) Blood Urea Nitrogen 14mg/dL (7-20) Creatinine 0.7mg/dL (0.6-1.0) Estimated GFR (Cockcroft-Gault) 80.1 Glucose Level 215mg/dL (70-99) Calcium Level 9.0mg/dL (8.5-10.1) Laboratory Tests Test 03/05/17 06:30 White Blood Count 22.4x10^3/uL (4.0-11.0) Red Blood Count 4.10x10^6/uL (3.50-5.40) Hemoglobin 12.1g/dL (12.0-15.5) Hematocrit 36.8% (36.0-47.0) Mean Corpuscular Volume 90fL (79-100) Mean Corpuscular Hemoglobin 30pg (25-35) Mean Corpuscular Hemoglobin Concent 33g/dL (31-37) Red Cell Distribution Width 13.2% (11.5-14.5) Platelet Count 360x10^3/uL (140-400) Medications Active Scripts Medications Dose Route/Sig Days Date Category Fosamax (Alendronate Sodium) 70 Mg Tablet 1 Tab PO WEEKLY 03/03/17 Reported Lovastatin 20 Mg Tablet 20 Mg PO HS 03/03/17 Reported Vitamin D (Cholecalciferol (Vitamin D3)) 1,000 Unit Capsule 1 Cap PO DAILY 03/03/17 Reported Aspir 81 (Aspirin) 81 Mg Tablet.dr 1 Tab PO DAILY 03/03/17 Reported Impression . 1. Dyspnea with acute hypoxic respiratory failure secondary to suspected right lower lobe pneumonia as seen on the chest x-ray done at urgent care facility 2. Underlying chronic obstructive pulmonary disease with mild exacerbation. Plan . 1. f/u chest x-ray only minimal scarring/ improving 2. Continue present antibiotics. 3. Wean off oxygen slowly, keep sats 92 and above. 4. Continue with nebulizer treatment. 5. Continue with steroids. 6. Anticipated hospitalization for 48 hours. THAI MCKEON MD Mar 05, 2017 14:46
[2017-03-05 15:00] VITALS: BP 116/62
[2017-03-05] MEDS: CEFTRIAXONE SODIUM 1 GM in IV NORMAL SALINE 50ML 50 ML IV SCH (16:00)
[2017-03-05 19:00] VITALS: BP 128/76
[2017-03-05] MEDS: BENZONATATE 100 MG CAPSULE. PO PRN (21:02)
[2017-03-05] MEDS: traZODone 50 MG TABLET. PO PRN (21:06)
[2017-03-05 23:00] VITALS: BP 135/69
[2017-03-06 03:10] VITALS: BP 126/71
[2017-03-06 06:25] LABS: CALCIUM 8.9 mg/dL (8.5-10.1); CREATININE 0.7 mg/dL (0.6-1.0); GFR 80.1; POTASSIUM 4.6 mmol/L (3.5-5.1)
[2017-03-06 06:37] LABS: HEMATOCRIT 38.6 % (36.0-47.0); HEMOGLOBIN 12.8 g/dL (12.0-15.5); RED BLOOD COUNT 4.34 x10^6/uL (3.50-5.40); RED CELL DISTRIBUTION WIDTH 13.2 % (11.5-14.5); WHITE BLOOD COUNT 17.6 x10^3/uL (4.0-11.0)
[2017-03-06 07:00] VITALS: BP 129/75
[2017-03-06] MEDS: IPRATRPIUM/ALBUTEROL 0.5/2.5MG 3 ML NEBU. NEB SCH ×4 (07:32→20:04)
[2017-03-06] MEDS ORDERED: DEXTROSE 50% 25 GM / 50ML DISP.SYRIN. IV PRN (08:45)
[2017-03-06] MEDS: methylPREDNISolone SOD SUCC PF 125 MG/2 ML VIAL. IV SCH ×2 (09:24→20:37)
[2017-03-06] MEDS: AZITHROMYCIN 250 MG TABLET. PO SCH (09:24)
[2017-03-06] MEDS: BENZONATATE 100 MG CAPSULE. PO PRN (09:24)
[2017-03-06] MEDS: ASPIRIN ENTERIC COATED 81 MG TABLET.DR. PO SCH (09:25)
--- NOTE | 2017-03-06 09:40 | PDOC ---
SUBJECTIVE Subjective still cough, thick sticky sputum hard to get out, but feels better generally, constipated OBJECTIVE Vital Signs Vital Signs Date Time Temp Pulse Resp B/P Pulse Ox O2 Delivery O2 Flow Rate FiO2 03/06/17 07:35 95 Nasal Cannula 2.0 03/06/17 07:00 97.9 104 17 129/75 90 Nasal Cannula 2.0 97.9 03/06/17 03:10 97.4 100 20 126/71 91 Nasal Cannula 97.4 03/05/17 23:00 97.9 81 20 135/69 92 Nasal Cannula 97.9 03/05/17 20:00 Nasal Cannula 2.0 03/05/17 19:39 95 Nasal Cannula 2.0 03/05/17 19:00 98.0 89 20 128/76 94 Nasal Cannula 98.0 03/05/17 15:00 97.5 103 14 116/62 93 Nasal Cannula 2.0 97.5 03/05/17 14:57 Nasal Cannula 2.0 03/05/17 10:40 92 Nasal Cannula 2.0 I & O Intake and Output 03/06/17 07:00 Intake Total 1370 ml Output Total 601 ml Balance 769 ml Intake Oral 1320 ml IV Total 50 ml Output Urine Total 600 ml Urine/Stool Mix 1 ml # Voids 5 PHYSICAL EXAM Physical Exam lungs good air movement, few ronchi R base, no wheezing heart RRR abd soft ext no edema ASSESSMENT/PLAN Assessment/Plan 1- RLL pneumonia 2. Dyspnea with acute hypoxic respiratory failure 3 Underlying chronic obstructive pulmonary disease with mild exacerbation. 4- constipation continue ABx and steroids , bronchodilators, watch BS, start PT Problems: COMMENT Lab Laboratory Tests Test 03/06/17 05:55 White Blood Count 17.6x10^3/uL (4.0-11.0) Red Blood Count 4.34x10^6/uL (3.50-5.40) Hemoglobin 12.8g/dL (12.0-15.5) Hematocrit 38.6% (36.0-47.0) Mean Corpuscular Volume 89fL (79-100) Mean Corpuscular Hemoglobin 30pg (25-35) Mean Corpuscular Hemoglobin Concent 33g/dL (31-37) Red Cell Distribution Width 13.2% (11.5-14.5) Platelet Count 443x10^3/uL (140-400) Sodium Level 143mmol/L (136-145) Potassium Level 4.6mmol/L (3.5-5.1) Chloride Level 107mmol/L (98-107) Carbon Dioxide Level 27mmol/L (21-32) Anion Gap 9 (6-14) Blood Urea Nitrogen 19mg/dL (7-20) Creatinine 0.7mg/dL (0.6-1.0) Estimated GFR (Cockcroft-Gault) 80.1 Glucose Level 186mg/dL (70-99) Calcium Level 8.9mg/dL (8.5-10.1) AVRIL KANG MD Mar 06, 2017 09:39
--- NOTE | 2017-03-06 09:41 | PDOC ---
PULMONARY PROGRESS NOTES Subjective COUGH IS PERSISTENT TODAY Vitals Vital Signs Date Time Temp Pulse Resp B/P Pulse Ox O2 Delivery O2 Flow Rate FiO2 03/06/17 07:35 95 Nasal Cannula 2.0 03/06/17 07:00 97.9 104 17 129/75 97.9 ROS: No Nausea, No Chest Pain, No Abdominal Pain General: Alert, No acute distress Lungs: Clear Cardiovascular: S1 Abdomen: Soft Neuro Exam: Alert Extremities: No Edema Skin: Warm Labs Laboratory Tests Test 03/05/17 06:30 03/06/17 05:55 White Blood Count 22.4x10^3/uL (4.0-11.0) 17.6x10^3/uL (4.0-11.0) Red Blood Count 4.10x10^6/uL (3.50-5.40) 4.34x10^6/uL (3.50-5.40) Hemoglobin 12.1g/dL (12.0-15.5) 12.8g/dL (12.0-15.5) Hematocrit 36.8% (36.0-47.0) 38.6% (36.0-47.0) Mean Corpuscular Volume 90fL (79-100) 89fL (79-100) Mean Corpuscular Hemoglobin 30pg (25-35) 30pg (25-35) Mean Corpuscular Hemoglobin Concent 33g/dL (31-37) 33g/dL (31-37) Red Cell Distribution Width 13.2% (11.5-14.5) 13.2% (11.5-14.5) Platelet Count 360x10^3/uL (140-400) 443x10^3/uL (140-400) Sodium Level 143mmol/L (136-145) Potassium Level 4.6mmol/L (3.5-5.1) Chloride Level 107mmol/L (98-107) Carbon Dioxide Level 27mmol/L (21-32) Anion Gap 9 (6-14) Blood Urea Nitrogen 19mg/dL (7-20) Creatinine 0.7mg/dL (0.6-1.0) Estimated GFR (Cockcroft-Gault) 80.1 Glucose Level 186mg/dL (70-99) Calcium Level 8.9mg/dL (8.5-10.1) Laboratory Tests Test 03/06/17 05:55 White Blood Count 17.6x10^3/uL (4.0-11.0) Red Blood Count 4.34x10^6/uL (3.50-5.40) Hemoglobin 12.8g/dL (12.0-15.5) Hematocrit 38.6% (36.0-47.0) Mean Corpuscular Volume 89fL (79-100) Mean Corpuscular Hemoglobin 30pg (25-35) Mean Corpuscular Hemoglobin Concent 33g/dL (31-37) Red Cell Distribution Width 13.2% (11.5-14.5) Platelet Count 443x10^3/uL (140-400) Sodium Level 143mmol/L (136-145) Potassium Level 4.6mmol/L (3.5-5.1) Chloride Level 107mmol/L (98-107) Carbon Dioxide Level 27mmol/L (21-32) Anion Gap 9 (6-14) Blood Urea Nitrogen 19mg/dL (7-20) Creatinine 0.7mg/dL (0.6-1.0) Estimated GFR (Cockcroft-Gault) 80.1 Glucose Level 186mg/dL (70-99) Calcium Level 8.9mg/dL (8.5-10.1) Medications Active Scripts Medications Dose Route/Sig Days Date Category Fosamax (Alendronate Sodium) 70 Mg Tablet 1 Tab PO WEEKLY 03/03/17 Reported Lovastatin 20 Mg Tablet 20 Mg PO HS 03/03/17 Reported Vitamin D (Cholecalciferol (Vitamin D3)) 1,000 Unit Capsule 1 Cap PO DAILY 03/03/17 Reported Aspir 81 (Aspirin) 81 Mg Tablet.dr 1 Tab PO DAILY 03/03/17 Reported Impression . 1. Dyspnea with acute hypoxic respiratory failure secondary to suspected right lower lobe pneumonia as seen on the chest x-ray done at urgent care facility 2. Underlying chronic obstructive pulmonary disease with mild exacerbation. 3. Persistent cough Plan . 1. f/u chest x-ray only minimal scarring/ improving/ will get ct chest for persistent cough 2. Continue present antibiotics. 3. Wean off oxygen slowly, keep sats 92 and above. 4. Continue with nebulizer treatment. 5. Continue with steroids. THAI MCKEON MD Mar 06, 2017 09:41
[2017-03-06] MEDS: POLYETHYLENE GLYCOL 3350 17 GM PACKET. PO SCH (10:00)
[2017-03-06 11:00] VITALS: BP 133/82
[2017-03-06] MEDS: INSULIN ASPART 300 UNITS/3 ML INSULN.PEN SQ SCH ×2 (12:00→17:52)
--- NOTE | 2017-03-06 14:05 | RAD ---
CT chest without IV contrast History: Persistent cough, pneumonia. Comparison: None. Technique: Helical CT of the chest was performed without intravenous contrast. Axial, sagittal, and coronal reconstructions were obtained. One or more of the following individualized dose reduction techniques were utilized for the study: Automated exposure control Adjustment of mA and/or kV according to patient's size Use of iterative reconstruction technique. Findings: Thyroid is small, but symmetric. Trachea and mainstem bronchi appear patent. Small right lower paratracheal lymph node measures 1.5 x 0.8 cm, not convincingly pathologic. Aortic atherosclerosis is present. Coronary artery calcifications are seen. No pericardial thickening is identified. Aortic valve calcifications are present. Cardiac chambers do not appear enlarged. Mild-moderate emphysematous changes of lungs are present. Multiple left lower lobe segmental and subjacent distal bronchi demonstrate mucus impaction. There is consolidation involving the posterior left lower lobe, favored to be atelectasis. No pleural effusion is identified. Irregular groundglass focus is seen in the right lower lobe measuring 1.5 cm (axial image 33). More superiorly, there appears to be a more soft tissue tissue component measuring 9 mm. There also appear to be mild centrilobular nodules with tree in bud appearance involving the right middle lobe with lesser amount of tree in bud nodules involving the posterior aspects of the bilateral upper lobes. Impression: 1. Emphysema. 2. Posterior left lower lobe atelectasis. Multiple left lower lobe bronchi demonstrate mucus impaction. 3. Right middle lobe demonstrates tree-in-bud centrilobular nodules. Lesser amount can be seen involving posterior aspects of both upper lobes. This could represent changes of nonspecific infectious bronchiolitis versus small airway inflammation. 4. Nonspecific irregular consolidation and groundglass opacity involving the posterior left lower lobe. This could be indicative of scarring or atelectasis; cannot exclude a neoplastic process. 5. If there are infectious symptoms, recommend appropriate treatment. Also recommend a follow-up chest CT in 3 months to reassess the above findings.
[2017-03-06 15:00] VITALS: BP 134/74
[2017-03-06] MEDS: CEFTRIAXONE SODIUM 1 GM in IV NORMAL SALINE 50ML 50 ML IV SCH (16:07)
[2017-03-06 19:00] VITALS: BP 153/76
[2017-03-06] MEDS: ATORVASTATIN CALCIUM 10 MG TABLET. PO SCH (20:38)
[2017-03-06 23:00] VITALS: BP 113/71
[2017-03-07 03:00] VITALS: BP 164/59
[2017-03-07 06:08] LABS: HEMATOCRIT 40.5 % (36.0-47.0); RED BLOOD COUNT 4.47 x10^6/uL (3.50-5.40); RED CELL DISTRIBUTION WIDTH 13.2 % (11.5-14.5); WHITE BLOOD COUNT 16.9 x10^3/uL (4.0-11.0)
[2017-03-07 06:38] LABS: CALCIUM 9.1 mg/dL (8.5-10.1); CREATININE 0.7 mg/dL (0.6-1.0); GFR 80.1; POTASSIUM 4.8 mmol/L (3.5-5.1)
[2017-03-07 07:00] VITALS: BP 136/84
[2017-03-07] MEDS: IPRATRPIUM/ALBUTEROL 0.5/2.5MG 3 ML NEBU. NEB SCH ×4 (07:35→20:12)
[2017-03-07] MEDS: INSULIN ASPART 300 UNITS/3 ML INSULN.PEN SQ SCH ×3 (08:00→17:00)
[2017-03-07] MEDS: ASPIRIN ENTERIC COATED 81 MG TABLET.DR. PO SCH (08:24)
[2017-03-07] MEDS: AZITHROMYCIN 250 MG TABLET. PO SCH (08:24)
[2017-03-07] MEDS: methylPREDNISolone SOD SUCC PF 125 MG/2 ML VIAL. IV SCH ×2 (08:24→20:42)
[2017-03-07] MEDS: BENZONATATE 100 MG CAPSULE. PO PRN (08:24)
[2017-03-07] MEDS: POLYETHYLENE GLYCOL 3350 17 GM PACKET. PO SCH (08:24)
[2017-03-07 11:00] VITALS: BP 128/62
--- NOTE | 2017-03-07 11:47 | PDOC ---
SUBJECTIVE Subjective cough slightly better, CT chest noted , discussed with pt OBJECTIVE Vital Signs Vital Signs Date Time Temp Pulse Resp B/P Pulse Ox O2 Delivery O2 Flow Rate FiO2 03/07/17 11:00 97.6 77 22 128/62 97 Room Air 97.6 03/07/17 08:00 Nasal Cannula 2.0 03/07/17 07:37 96 Nasal Cannula 2.0 03/07/17 07:00 98.0 76 24 136/84 92 Nasal Cannula 98.0 03/07/17 03:00 97.5 83 18 164/59 96 Nasal Cannula 2.0 97.5 03/06/17 23:00 97.9 81 18 113/71 96 Nasal Cannula 2.0 97.9 03/06/17 20:06 97 Nasal Cannula 2.0 03/06/17 20:00 Nasal Cannula 2.0 03/06/17 19:00 97.9 86 18 153/76 93 Nasal Cannula 2.0 97.9 03/06/17 15:45 Nasal Cannula 2.0 03/06/17 15:00 97.4 86 18 134/74 92 Nasal Cannula 2.0 97.4 I & O Intake and Output 03/07/17 07:00 Intake Total 1800 ml Output Total 353 ml Balance 1447 ml Intake Oral 1800 ml Output Urine Total 350 ml Stool Total 3 ml # Voids 4 PHYSICAL EXAM Physical Exam lungs few scattered ronchi heart RRR abd soft ext no edema ASSESSMENT/PLAN Assessment/Plan 1- multilobe pneumonia on CT continue ABx and pulmonary support , need repeat CT in 3 month 2. Dyspnea with acute hypoxic respiratory failure 3 Underlying chronic obstructive pulmonary disease with mild exacerbation. 4- constipation continue ABx and steroids , bronchodilators, watch BS mild elevation due to steroids. pt express interest in SNU does not have enough support at home, will ask social SVC Problems: COMMENT Lab Laboratory Tests Test 03/06/17 17:14 03/06/17 20:39 03/07/17 05:15 03/07/17 07:16 Glucose (Fingerstick) 240mg/dL (70-99) 161mg/dL (70-99) 127mg/dL (70-99) White Blood Count 16.9x10^3/uL (4.0-11.0) Red Blood Count 4.47x10^6/uL (3.50-5.40) Hemoglobin 13.0g/dL (12.0-15.5) Hematocrit 40.5% (36.0-47.0) Mean Corpuscular Volume 91fL (79-100) Mean Corpuscular Hemoglobin 29pg (25-35) Mean Corpuscular Hemoglobin Concent 32g/dL (31-37) Red Cell Distribution Width 13.2% (11.5-14.5) Platelet Count 471x10^3/uL (140-400) Sodium Level 144mmol/L (136-145) Potassium Level 4.8mmol/L (3.5-5.1) Chloride Level 107mmol/L (98-107) Carbon Dioxide Level 30mmol/L (21-32) Anion Gap 7 (6-14) Blood Urea Nitrogen 15mg/dL (7-20) Creatinine 0.7mg/dL (0.6-1.0) Estimated GFR (Cockcroft-Gault) 80.1 Glucose Level 168mg/dL (70-99) Calcium Level 9.1mg/dL (8.5-10.1) Test 03/07/17 10:54 Glucose (Fingerstick) 144mg/dL (70-99) AVRIL KANG MD Mar 07, 2017 11:47
--- NOTE | 2017-03-07 14:45 | PDOC ---
PULMONARY PROGRESS NOTES Subjective improving cough Vitals Vital Signs Date Time Temp Pulse Resp B/P Pulse Ox O2 Delivery O2 Flow Rate FiO2 03/07/17 12:17 98 Nasal Cannula 2.0 03/07/17 11:00 97.6 77 22 128/62 97.6 ROS: No Nausea, No Chest Pain, No Abdominal Pain General: Alert, No acute distress Lungs: Other (decrease bs) Cardiovascular: S1 Abdomen: Soft Neuro Exam: Alert Extremities: No Edema Skin: Warm Labs Laboratory Tests Test 03/06/17 05:55 03/06/17 17:14 03/06/17 20:39 03/07/17 05:15 White Blood Count 17.6x10^3/uL (4.0-11.0) 16.9x10^3/uL (4.0-11.0) Red Blood Count 4.34x10^6/uL (3.50-5.40) 4.47x10^6/uL (3.50-5.40) Hemoglobin 12.8g/dL (12.0-15.5) 13.0g/dL (12.0-15.5) Hematocrit 38.6% (36.0-47.0) 40.5% (36.0-47.0) Mean Corpuscular Volume 89fL (79-100) 91fL (79-100) Mean Corpuscular Hemoglobin 30pg (25-35) 29pg (25-35) Mean Corpuscular Hemoglobin Concent 33g/dL (31-37) 32g/dL (31-37) Red Cell Distribution Width 13.2% (11.5-14.5) 13.2% (11.5-14.5) Platelet Count 443x10^3/uL (140-400) 471x10^3/uL (140-400) Sodium Level 143mmol/L (136-145) 144mmol/L (136-145) Potassium Level 4.6mmol/L (3.5-5.1) 4.8mmol/L (3.5-5.1) Chloride Level 107mmol/L (98-107) 107mmol/L (98-107) Carbon Dioxide Level 27mmol/L (21-32) 30mmol/L (21-32) Anion Gap 9 (6-14) 7 (6-14) Blood Urea Nitrogen 19mg/dL (7-20) 15mg/dL (7-20) Creatinine 0.7mg/dL (0.6-1.0) 0.7mg/dL (0.6-1.0) Estimated GFR (Cockcroft-Gault) 80.1 80.1 Glucose Level 186mg/dL (70-99) 168mg/dL (70-99) Hemoglobin A1c 5.7% (4.8-5.6) Calcium Level 8.9mg/dL (8.5-10.1) 9.1mg/dL (8.5-10.1) Glucose (Fingerstick) 240mg/dL (70-99) 161mg/dL (70-99) Test 03/07/17 07:16 03/07/17 10:54 Glucose (Fingerstick) 127mg/dL (70-99) 144mg/dL (70-99) Laboratory Tests Test 03/06/17 17:14 03/06/17 20:39 03/07/17 05:15 03/07/17 07:16 Glucose (Fingerstick) 240mg/dL (70-99) 161mg/dL (70-99) 127mg/dL (70-99) White Blood Count 16.9x10^3/uL (4.0-11.0) Red Blood Count 4.47x10^6/uL (3.50-5.40) Hemoglobin 13.0g/dL (12.0-15.5) Hematocrit 40.5% (36.0-47.0) Mean Corpuscular Volume 91fL (79-100) Mean Corpuscular Hemoglobin 29pg (25-35) Mean Corpuscular Hemoglobin Concent 32g/dL (31-37) Red Cell Distribution Width 13.2% (11.5-14.5) Platelet Count 471x10^3/uL (140-400) Sodium Level 144mmol/L (136-145) Potassium Level 4.8mmol/L (3.5-5.1) Chloride Level 107mmol/L (98-107) Carbon Dioxide Level 30mmol/L (21-32) Anion Gap 7 (6-14) Blood Urea Nitrogen 15mg/dL (7-20) Creatinine 0.7mg/dL (0.6-1.0) Estimated GFR (Cockcroft-Gault) 80.1 Glucose Level 168mg/dL (70-99) Calcium Level 9.1mg/dL (8.5-10.1) Test 03/07/17 10:54 Glucose (Fingerstick) 144mg/dL (70-99) Medications Active Scripts Medications Dose Route/Sig Days Date Category Fosamax (Alendronate Sodium) 70 Mg Tablet 1 Tab PO WEEKLY 03/03/17 Reported Lovastatin 20 Mg Tablet 20 Mg PO HS 03/03/17 Reported Vitamin D (Cholecalciferol (Vitamin D3)) 1,000 Unit Capsule 1 Cap PO DAILY 03/03/17 Reported Aspir 81 (Aspirin) 81 Mg Tablet.dr 1 Tab PO DAILY 03/03/[address] CHEST 1. Emphysema. 2. Posterior left lower lobe atelectasis. Multiple left lower lobe bronchi demonstrate mucus impaction. 3. Right middle lobe demonstrates tree-in-bud centrilobular nodules. Lesser amount can be seen involving posterior aspects of both upper lobes. This could represent changes of nonspecific infectious bronchiolitis versus small airway inflammation. 4. Nonspecific irregular consolidation and groundglass opacity involving the posterior left lower lobe. This could be indicative of scarring or atelectasis; cannot exclude a neoplastic process. 5. If there are infectious symptoms, recommend appropriate treatment. Also recommend a follow-up chest CT in 3 months to reassess the above findings. Impression . 1. Dyspnea with acute hypoxic respiratory failure secondary to suspected right lower lobe pneumonia as seen on the chest x-ray done at urgent care facility 2. Underlying chronic obstructive pulmonary disease with mild exacerbation. 3. Cough due to pneumonia, improving 4. Abnormal ct chest as above, repeat 6-8 weeks Plan . 1. clinically better. repeat ct chest 6-8 weeks 2. Continue present antibiotics. 3. Wean off oxygen slowly, keep sats 92 and above. 4. Continue with nebulizer treatment. 5. Continue with steroids. THAI MCKEON MD Mar 07, 2017 14:45
[2017-03-07 15:00] VITALS: BP 134/74
[2017-03-07] MEDS: CEFTRIAXONE SODIUM 1 GM in IV NORMAL SALINE 50ML 50 ML IV SCH (16:03)
[2017-03-07 19:00] VITALS: BP 151/82
[2017-03-07] MEDS: traZODone 50 MG TABLET. PO PRN (20:42)
[2017-03-07] MEDS: ATORVASTATIN CALCIUM 10 MG TABLET. PO SCH (20:42)
[2017-03-07 22:57] VITALS: BP 129/71
[2017-03-08 02:51] VITALS: BP 133/60
[2017-03-08 07:00] VITALS: BP 141/76
[2017-03-08] MEDS: INSULIN ASPART 300 UNITS/3 ML INSULN.PEN SQ SCH ×3 (08:00→17:00)
[2017-03-08] MEDS: IPRATRPIUM/ALBUTEROL 0.5/2.5MG 3 ML NEBU. NEB SCH ×4 (08:33→20:05)
[2017-03-08] MEDS: ASPIRIN ENTERIC COATED 81 MG TABLET.DR. PO SCH (08:34)
[2017-03-08] MEDS: AZITHROMYCIN 250 MG TABLET. PO SCH (08:34)
[2017-03-08] MEDS: methylPREDNISolone SOD SUCC PF 125 MG/2 ML VIAL. IV SCH (08:35)
[2017-03-08] MEDS: POLYETHYLENE GLYCOL 3350 17 GM PACKET. PO SCH (08:35)
--- NOTE | 2017-03-08 10:46 | PDOC ---
SUBJECTIVE Subjective feels better, cough is better OBJECTIVE Vital Signs Vital Signs Date Time Temp Pulse Resp B/P Pulse Ox O2 Delivery O2 Flow Rate FiO2 03/08/17 08:34 96 Nasal Cannula 2.0 03/08/17 07:00 97.5 85 18 141/76 95 Nasal Cannula 2.0 97.5 03/08/17 02:51 97.9 77 18 133/60 96 Nasal Cannula 2.0 97.9 03/07/17 22:57 97.9 77 20 129/71 96 Nasal Cannula 2.0 97.9 03/07/17 20:12 96 Nasal Cannula 2.0 03/07/17 20:00 Nasal Cannula 2.0 03/07/17 19:00 97.7 97 20 151/82 95 Nasal Cannula 2.0 97.7 03/07/17 16:43 Nasal Cannula 2.0 03/07/17 15:00 97.5 90 22 134/74 96 Nasal Cannula 2.0 97.5 03/07/17 12:17 98 Nasal Cannula 2.0 03/07/17 11:00 97.6 77 22 128/62 97 Room Air 97.6 I & O Intake and Output 03/08/17 07:00 Intake Total 1800 ml Output Total 1550 ml Balance 250 ml Intake Oral 1800 ml Output Urine Total 1550 ml PHYSICAL EXAM Physical Exam lungs better air movement heart RRR abd soft ext no edema ASSESSMENT/PLAN Assessment/Plan 1- multilobe pneumonia on CT continue ABx and pulmonary support , need repeat CT in 3 month 2. Dyspnea with acute hypoxic respiratory failure 3 Underlying chronic obstructive pulmonary disease with mild exacerbation. 4- constipation better continue ABx and steroids , bronchodilators, watch BS mild elevation due to steroids. not candidate for rehab , plan home with home health in AM she will stay at daughter house for few days. Problems: COMMENT Lab Laboratory Tests Test 03/07/17 10:54 03/07/17 16:15 03/07/17 20:43 03/08/17 07:04 Glucose (Fingerstick) 144mg/dL (70-99) 139mg/dL (70-99) 194mg/dL (70-99) 123mg/dL (70-99) AVRIL KANG MD Mar 08, 2017 10:46
[2017-03-08 11:00] VITALS: BP 149/70
--- NOTE | 2017-03-08 11:04 | PDOC ---
PULMONARY PROGRESS NOTES Subjective improving cough, sob, no pain runny nose. Vitals Vital Signs Date Time Temp Pulse Resp B/P Pulse Ox O2 Delivery O2 Flow Rate FiO2 03/08/17 08:34 96 Nasal Cannula 2.0 03/08/17 07:00 97.5 85 18 141/76 97.5 ROS: No Nausea, No Chest Pain, No Abdominal Pain General: Alert, No acute distress HEENT: Other (nc at perrl) Lungs: Other (decrease bs) Cardiovascular: S1, S2 Abdomen: Soft, Non-tender Neuro Exam: Alert, Oriented Extremities: No Edema Skin: Warm Labs Laboratory Tests Test 03/06/17 17:14 03/06/17 20:39 03/07/17 05:15 03/07/17 07:16 Glucose (Fingerstick) 240mg/dL (70-99) 161mg/dL (70-99) 127mg/dL (70-99) White Blood Count 16.9x10^3/uL (4.0-11.0) Red Blood Count 4.47x10^6/uL (3.50-5.40) Hemoglobin 13.0g/dL (12.0-15.5) Hematocrit 40.5% (36.0-47.0) Mean Corpuscular Volume 91fL (79-100) Mean Corpuscular Hemoglobin 29pg (25-35) Mean Corpuscular Hemoglobin Concent 32g/dL (31-37) Red Cell Distribution Width 13.2% (11.5-14.5) Platelet Count 471x10^3/uL (140-400) Sodium Level 144mmol/L (136-145) Potassium Level 4.8mmol/L (3.5-5.1) Chloride Level 107mmol/L (98-107) Carbon Dioxide Level 30mmol/L (21-32) Anion Gap 7 (6-14) Blood Urea Nitrogen 15mg/dL (7-20) Creatinine 0.7mg/dL (0.6-1.0) Estimated GFR (Cockcroft-Gault) 80.1 Glucose Level 168mg/dL (70-99) Calcium Level 9.1mg/dL (8.5-10.1) Test 03/07/17 10:54 03/07/17 16:15 03/07/17 20:43 03/08/17 07:04 Glucose (Fingerstick) 144mg/dL (70-99) 139mg/dL (70-99) 194mg/dL (70-99) 123mg/dL (70-99) Laboratory Tests Test 03/07/17 16:15 03/07/17 20:43 03/08/17 07:04 Glucose (Fingerstick) 139mg/dL (70-99) 194mg/dL (70-99) 123mg/dL (70-99) Medications Active Scripts Medications Dose Route/Sig Days Date Category Fosamax (Alendronate Sodium) 70 Mg Tablet 1 Tab PO WEEKLY 03/03/17 Reported Lovastatin 20 Mg Tablet 20 Mg PO HS 03/03/17 Reported Vitamin D (Cholecalciferol (Vitamin D3)) 1,000 Unit Capsule 1 Cap PO DAILY 03/03/17 Reported Aspir 81 (Aspirin) 81 Mg Tablet.dr 1 Tab PO DAILY 03/03/[address] CHEST 1. Emphysema. 2. Posterior left lower lobe atelectasis. Multiple left lower lobe bronchi demonstrate mucus impaction. 3. Right middle lobe demonstrates tree-in-bud centrilobular nodules. Lesser amount can be seen involving posterior aspects of both upper lobes. This could represent changes of nonspecific infectious bronchiolitis versus small airway inflammation. 4. Nonspecific irregular consolidation and groundglass opacity involving the posterior left lower lobe. This could be indicative of scarring or atelectasis; cannot exclude a neoplastic process. 5. If there are infectious symptoms, recommend appropriate treatment. Also recommend a follow-up chest CT in 3 months to reassess the above findings. Impression . 1. Dyspnea with acute hypoxic respiratory failure secondary to suspected right lower lobe pneumonia as seen on the chest x-ray done at urgent care facility 2. Underlying chronic obstructive pulmonary disease with mild exacerbation. 3. Cough due to pneumonia, improving 4. Abnormal ct chest as above, repeat 6-8 weeks Plan . 1. clinically better. repeat ct chest 6-8 weeks 2. Continue present antibiotics. 3. Wean off oxygen slowly, keep sats 90 and above. 4. Continue with nebulizer treatment. 5. change solumedrol to prednisone w taper increase activity discussed w pt , rn FERNANDA SEE MD Mar 08, 2017 11:03
[2017-03-08 15:00] VITALS: BP 132/79
[2017-03-08] MEDS: CEFTRIAXONE SODIUM 1 GM in IV NORMAL SALINE 50ML 50 ML IV SCH (16:58)
[2017-03-08 19:00] VITALS: BP 136/77
[2017-03-08] MEDS: ATORVASTATIN CALCIUM 10 MG TABLET. PO SCH (20:54)
[2017-03-08 23:01] VITALS: BP 141/66
[2017-03-09 03:00] VITALS: BP 106/67
[2017-03-09 07:00] VITALS: BP 149/70
[2017-03-09] MEDS: IPRATRPIUM/ALBUTEROL 0.5/2.5MG 3 ML NEBU. NEB SCH ×4 (07:36→18:21)
--- NOTE | 2017-03-09 07:48 | PDOC ---
PULMONARY PROGRESS NOTES Subjective improving cough, sob, no pain runny nose. Vitals Vital Signs Date Time Temp Pulse Resp B/P Pulse Ox O2 Delivery O2 Flow Rate FiO2 03/09/17 07:36 93 Nasal Cannula 2.0 03/09/17 07:00 97.7 90 18 149/70 97.7 ROS: No Nausea, No Chest Pain, No Abdominal Pain General: Alert, No acute distress HEENT: Other (nc at perrl) Lungs: Other (decrease bs) Cardiovascular: S1, S2 Abdomen: Soft, Non-tender Neuro Exam: Alert, Oriented Extremities: No Edema Skin: Warm Labs Laboratory Tests Test 03/07/17 10:54 03/07/17 16:15 03/07/17 20:43 03/08/17 07:04 Glucose (Fingerstick) 144mg/dL (70-99) 139mg/dL (70-99) 194mg/dL (70-99) 123mg/dL (70-99) Test 03/08/17 12:09 03/08/17 17:08 03/08/17 20:57 Glucose (Fingerstick) 121mg/dL (70-99) 121mg/dL (70-99) 156mg/dL (70-99) Laboratory Tests Test 03/08/17 12:09 03/08/17 17:08 03/08/17 20:57 Glucose (Fingerstick) 121mg/dL (70-99) 121mg/dL (70-99) 156mg/dL (70-99) Medications Active Scripts Medications Dose Route/Sig Days Date Category Fosamax (Alendronate Sodium) 70 Mg Tablet 1 Tab PO WEEKLY 03/03/17 Reported Lovastatin 20 Mg Tablet 20 Mg PO HS 03/03/17 Reported Vitamin D (Cholecalciferol (Vitamin D3)) 1,000 Unit Capsule 1 Cap PO DAILY 03/03/17 Reported Aspir 81 (Aspirin) 81 Mg Tablet.dr 1 Tab PO DAILY 03/03/[address] CHEST 1. Emphysema. 2. Posterior left lower lobe atelectasis. Multiple left lower lobe bronchi demonstrate mucus impaction. 3. Right middle lobe demonstrates tree-in-bud centrilobular nodules. Lesser amount can be seen involving posterior aspects of both upper lobes. This could represent changes of nonspecific infectious bronchiolitis versus small airway inflammation. 4. Nonspecific irregular consolidation and groundglass opacity involving the posterior left lower lobe. This could be indicative of scarring or atelectasis; cannot exclude a neoplastic process. 5. If there are infectious symptoms, recommend appropriate treatment. Also recommend a follow-up chest CT in 3 months to reassess the above findings. Impression . 1. Dyspnea with acute hypoxic respiratory failure secondary to suspected right lower lobe pneumonia as seen on the chest x-ray done at urgent care facility 2. Underlying chronic obstructive pulmonary disease with mild exacerbation. 3. Cough due to pneumonia, improving 4. Abnormal ct chest as above, repeat 6-8 weeks Plan . 1. clinically better. repeat ct chest 6-8 weeks 2. Continue present antibiotics. 3. Wean off oxygen slowly, keep sats 90 and above. 4. Continue with nebulizer treatment. 5. change solumedrol to prednisone w taper by 10 mg q 3d increase activity discussed w pt , rn ok to dc FERNANDA SEE MD Mar 09, 2017 07:48
[2017-03-09] MEDS: AZITHROMYCIN 250 MG TABLET. PO SCH (08:33)
[2017-03-09] MEDS: PREDNISONE 10 MG TABLET PO SCH (08:33)
[2017-03-09] MEDS: ASPIRIN ENTERIC COATED 81 MG TABLET.DR. PO SCH (08:33)
[2017-03-09] MEDS: INSULIN ASPART 300 UNITS/3 ML INSULN.PEN SQ SCH ×3 (08:40→17:31)
[2017-03-09] MEDS: POLYETHYLENE GLYCOL 3350 17 GM PACKET. PO SCH (08:43)
[2017-03-09 10:54] VITALS: BP 110/61
[2017-03-09] MEDS ORDERED: BENZ100C2 PO (13:29)
[2017-03-09] MEDS ORDERED: IPRA3AMP NEB (13:29)
[2017-03-09] MEDS ORDERED: LEVO500T38 PO (13:29)
[2017-03-09] MEDS ORDERED: PRED-220 PO (13:29)
--- NOTE | 2017-03-09 13:41 | PDOC ---
SUBJECTIVE Subjective feels better, not able to stop O2 continue with resting hypoxia will need home O2 OBJECTIVE Objective VSS Vital Signs Vital Signs Date Time Temp Pulse Resp B/P Pulse Ox O2 Delivery O2 Flow Rate FiO2 03/09/17 11:01 Nasal Cannula 2.0 03/09/17 10:54 97.7 82 16 110/61 93 Nasal Cannula 2.0 97.7 03/09/17 08:00 Nasal Cannula 2.0 03/09/17 07:36 93 Nasal Cannula 2.0 03/09/17 07:00 97.7 90 18 149/70 91 Nasal Cannula 2.0 97.7 03/09/17 03:00 97.9 60 20 106/67 99 Nasal Cannula 2.0 97.9 03/08/17 23:01 97.9 88 20 141/66 95 Nasal Cannula 2.0 97.9 03/08/17 20:06 92 Nasal Cannula 2.0 03/08/17 20:00 Nasal Cannula 2.0 03/08/17 19:00 98.1 98 20 136/77 94 Nasal Cannula 2.0 98.1 03/08/17 17:50 Nasal Cannula 2.0 03/08/17 15:00 98.1 89 22 132/79 93 Nasal Cannula 2.0 98.1 I & O Intake and Output 03/09/17 07:00 Intake Total 3410 ml Output Total 1750 ml Balance 1660 ml Intake Oral 3410 ml Output Urine Total 1750 ml # Bowel Movements 1 PHYSICAL EXAM Physical Exam lungs sound better heart RRR abd soft ext no edema ASSESSMENT/PLAN Assessment/Plan 1- multilobe pneumonia on CT continue ABx and pulmonary support , need repeat CT in 2 month 2. Dyspnea with acute hypoxic respiratory failure not able to wean off O2 will arrange for home O2 3 Underlying chronic obstructive pulmonary disease with mild exacerbation. 4- constipation better switch to po levaquin , taper steroid as out pt , need home health Problems: COMMENT Lab Laboratory Tests Test 03/08/17 17:08 03/08/17 20:57 03/09/17 11:46 Glucose (Fingerstick) 121mg/dL (70-99) 156mg/dL (70-99) 113mg/dL (70-99) AVRIL KANG MD Mar 09, 2017 13:41
--- NOTE | 2017-03-09 13:43 | PDOC3 ---
Discharge Summary* Date of Admission: Mar 03, 2017 Date of Discharge: Mar 09, 2017 Admitting Diagnosis Problems Medical Problems: (1) CAP (community acquired pneumonia) Status: Acute (2) PNA (pneumonia) Status: Acute (3) Sepsis Status: Acute Final Diagnosis 1- multilobe pneumonia on CT continue ABx and pulmonary support , need repeat CT in 2 month 2. Dyspnea with acute hypoxic respiratory failure not able to wean off O2 will arrange for home O2 3 Underlying chronic obstructive pulmonary disease with mild exacerbation. 4- constipation better Problems Medical Problems: (1) CAP (community acquired pneumonia) Status: Acute (2) PNA (pneumonia) Status: Acute (3) Sepsis Status: Acute CONSULTS pulmonary Procedures CT chest several CXR Brief Hospital Course Ms. Stevens is a 81 old [sex] who presented with [ ] Disposition/Orders: D/C to Home w/ HH CONDITION AT DISCHARGE: Improved Diet: Consistent Carbohydrate Scheduled Alendronate Sodium (Fosamax) 1 TAB PO WEEKLY (Reported) Aspirin (Aspir 81) 1 TAB PO DAILY (Reported) Cholecalciferol (Vitamin D3) (Vitamin D) 1 CAP PO DAILY (Reported) Ipratropium/Albuterol Sulfate (Duoneb 0.5-3(2.5) Mg/3 Ml) 3 ML NEB RTQID Levofloxacin (Levaquin) 1 TAB PO DAILY Lovastatin (Lovastatin) 20 MG PO HS (Reported) Prednisone (Prednisone) 40 MG PO DAILY Scheduled PRN Benzonatate (Benzonatate) 100 MG PO PRN TID PRN PRN cough FOLLOW UP APPOINTMENT: home O2 re-evaluate when pnemonia better Dr. Padron in 1 week Time Spent Total time spent with patient [] minutes for coordination of care, counseling, and education. AVRIL KANG MD Mar 09, 2017 13:43
[2017-03-09 15:00] VITALS: BP 115/63
[2017-03-09] MEDS: CEFTRIAXONE SODIUM 1 GM in IV NORMAL SALINE 50ML 50 ML IV SCH (17:29)
[2017-03-09 19:00] VITALS: BP 112/52
[2017-03-09] MEDS: ATORVASTATIN CALCIUM 10 MG TABLET. PO SCH (20:32)
[2017-03-09 23:00] VITALS: BP 152/53
[2017-03-10 03:00] VITALS: BP 113/51
[2017-03-10 07:40] VITALS: BP 107/55
[2017-03-10] MEDS: INSULIN ASPART 300 UNITS/3 ML INSULN.PEN SQ SCH ×2 (08:00→12:00)
[2017-03-10] MEDS: IPRATRPIUM/ALBUTEROL 0.5/2.5MG 3 ML NEBU. NEB SCH ×2 (08:02→11:54)
[2017-03-10] MEDS: POLYETHYLENE GLYCOL 3350 17 GM PACKET. PO SCH (09:00)
[2017-03-10] MEDS: ASPIRIN ENTERIC COATED 81 MG TABLET.DR. PO SCH (09:53)
[2017-03-10] MEDS: PREDNISONE 10 MG TABLET PO SCH (09:54)
[2017-03-10] MEDS: AZITHROMYCIN 250 MG TABLET. PO SCH (09:54)
[2017-03-10 10:43] VITALS: BP 115/57
--- NOTE | 2017-03-10 14:22 | PDOC ---
PULMONARY PROGRESS NOTES Subjective improving cough, sob, no pain runny nose. Vitals Vital Signs Date Time Temp Pulse Resp B/P Pulse Ox O2 Delivery O2 Flow Rate FiO2 03/10/17 11:55 Nasal Cannula 2.0 03/10/17 10:43 85 16 115/57 95 03/10/17 07:40 98.1 98.1 ROS: No Nausea, No Chest Pain, No Abdominal Pain General: Alert, No acute distress HEENT: Other (nc at perrl) Lungs: Other (decrease bs) Cardiovascular: S1, S2 Abdomen: Soft, Non-tender Neuro Exam: Alert, Oriented Extremities: No Edema Skin: Warm Labs Laboratory Tests Test 03/08/17 17:08 03/08/17 20:57 03/09/17 11:46 03/09/17 16:32 Glucose (Fingerstick) 121mg/dL (70-99) 156mg/dL (70-99) 113mg/dL (70-99) 202mg/dL (70-99) Test 03/09/17 20:56 03/10/17 08:35 03/10/17 11:56 Glucose (Fingerstick) 180mg/dL (70-99) 133mg/dL (70-99) 98mg/dL (70-99) Laboratory Tests Test 03/09/17 16:32 03/09/17 20:56 03/10/17 08:35 03/10/17 11:56 Glucose (Fingerstick) 202mg/dL (70-99) 180mg/dL (70-99) 133mg/dL (70-99) 98mg/dL (70-99) Medications Active Scripts Medications Dose Route/Sig Days Date Category Fosamax (Alendronate Sodium) 70 Mg Tablet 1 Tab PO WEEKLY 03/03/17 Reported Lovastatin 20 Mg Tablet 20 Mg PO HS 03/03/17 Reported Vitamin D (Cholecalciferol (Vitamin D3)) 1,000 Unit Capsule 1 Cap PO DAILY 03/03/17 Reported Aspir 81 (Aspirin) 81 Mg Tablet.dr 1 Tab PO DAILY 03/03/[address] CHEST 1. Emphysema. 2. Posterior left lower lobe atelectasis. Multiple left lower lobe bronchi demonstrate mucus impaction. 3. Right middle lobe demonstrates tree-in-bud centrilobular nodules. Lesser amount can be seen involving posterior aspects of both upper lobes. This could represent changes of nonspecific infectious bronchiolitis versus small airway inflammation. 4. Nonspecific irregular consolidation and groundglass opacity involving the posterior left lower lobe. This could be indicative of scarring or atelectasis; cannot exclude a neoplastic process. 5. If there are infectious symptoms, recommend appropriate treatment. Also recommend a follow-up chest CT in 3 months to reassess the above findings. Impression . 1. Dyspnea with acute hypoxic respiratory failure secondary to suspected right lower lobe pneumonia as seen on the chest x-ray done at urgent care facility 2. Underlying chronic obstructive pulmonary disease with mild exacerbation. 3. Cough due to pneumonia, improving 4. Abnormal ct chest as above, repeat 6-8 weeks Plan . 1. clinically better. repeat ct chest 6-8 weeks 2. Continue present antibiotics. 3. Wean off oxygen slowly, keep sats 90 and above. 4. Continue with nebulizer treatment. 5. change solumedrol to prednisone w taper by 10 mg q 3d increase activity discussed w pt , rn ok to dc KOKO DELATORRE MD Mar 10, 2017 14:22
== END 2017-03-10 14:20 | disposition home health service (06) | DRG 177 ==
LOC: ER 14:33 → 5 NORTH 15:21
PROVIDERS: ADMIT Family Medicine; ATTEND Family Medicine
DX: J15.6 Pneumonia due to other Gram-negative bacteria (principal); J96.01 Acute respiratory failure with hypoxia; J44.1 Chronic obstructive pulmonary disease with (acute) exacerbation; J44.0 Chronic obstructive pulmonary disease with (acute) lower respiratory infection; K59.00 Constipation, unspecified; R63.0 Anorexia; J15.9 Unspecified bacterial pneumonia; T38.0X5A Adverse effect of glucocorticoids and synthetic analogues, initial encounter; Z87.891 Personal history of nicotine dependence; Z68.20 Body mass index [BMI] 20.0-20.9, adult
CPT/HCPCS: 36415; 71010; 71250; 80048; 80076; 82947; 83036; 83605; 83690; 83880; 84484; 85007; 85027; 87040; 93005; 94250; 94620; 94640; 94760; 96365; 96367; J0456; J0690; J0696; J1815; J2930; J7040; J7512; J7620; Q0144; 92610; 99285-25

== ENCOUNTER 2017-12-27 12:36 | Inpatient (IN) | payer OTHER ==
[2017-12-27 13:07] LABS: ADD MAN DIFF? NO
[2017-12-27 13:16] LABS: BASO # 0.1 x10^3/uL (0.0-0.2); BASO % 1 % (0-3); EOS % 0 % (0-3); HEMATOCRIT 48.4 % (36.0-47.0); LYMPH # 1.1 x10^3/uL (1.0-4.8); LYMPH % 11 % (24-48); MEAN CORPUSCULAR HEMOGLOBIN 30 pg (25-35); MEAN CORPUSCULAR HGB CONC 33 g/dL (31-37); MEAN CORPUSCULAR VOLUME 89 fL (79-100); MONO # 0.9 x10^3/uL (0.0-1.1); MONO % 9 % (0-9); NEUT # 8.3 x10^3uL (1.8-7.7); NEUT % 80 % (31-73); PLATELET COUNT 166 x10^3/uL (140-400); RED BLOOD COUNT 5.42 x10^6/uL (3.50-5.40); RED CELL DISTRIBUTION WIDTH 13.4 % (11.5-14.5); WHITE BLOOD COUNT 10.4 x10^3/uL (4.0-11.0)
[2017-12-27] MEDS: ACETAMINOPHEN 325 MG TABLET. PO (13:23)
[2017-12-27 13:24] LABS: ANION GAP 12 (6-14); BLOOD UREA NITROGEN 12 mg/dL (7-20); BUN/CREATININE RATIO 17 (6-20); CALCIUM 9.2 mg/dL (8.5-10.1); CARBON DIOXIDE 26 mmol/L (21-32); CHLORIDE 101 mmol/L (98-107); CREATININE 0.7 mg/dL (0.6-1.0); GFR 79.9; GLUCOSE 156 mg/dL (70-99); POTASSIUM 4.1 mmol/L (3.5-5.1); SODIUM 139 mmol/L (136-145)
[2017-12-27 13:30] LABS: LACTIC ACID 1.6 mmol/L (0.4-2.0)
[2017-12-27 13:33] LABS: TROPONINI < 0.017 ng/mL (0.000-0.055)
[2017-12-27 13:34] LABS: NT-PRO BNP 140 pg/mL (0-449)
[2017-12-27 13:35] LABS: INFLUENZA A PATIENT NEGATIVE (NEGATIVE); INFLUENZA B PATIENT POSITIVE (NEGATIVE); OBC FLU VALID
[2017-12-27 13:37] LABS: ALBUMIN/GLOBULIN RATIO 1.3 (1.0-1.7); ALK PHOS 79 U/L (46-116); ALT (SGPT) 29 U/L (14-59); AST (SGOT) 35 U/L (15-37); TOTAL BILIRUBIN 0.3 mg/dL (0.2-1.0); TOTAL PROTEIN 7.2 g/dL (6.4-8.2)
[2017-12-27] MEDS: AZITHRMYCN 500MG IVPB FOR OMNI 250 ML IV (13:59)
[2017-12-27] MEDS ORDERED: ONDANSETRON PF 4 MG/2 ML VIAL. IV (14:15)
[2017-12-27] MEDS: OSELTAMIVIR 30 MG CAPSULE PO (14:35)
[2017-12-27] MEDS: methylPREDNISolone SOD SUCC PF 125 MG/2 ML VIAL. IV (14:38)
[2017-12-27] MEDS: IPRATRPIUM/ALBUTEROL 0.5/2.5MG 3 ML NEBU. NEB ×4 (14:42→19:13)
[2017-12-27 16:00] LABS: BILIRUBIN,URINE NEGATIVE (NEG); CLARITY,URINE CLEAR; COLOR,URINE YELLOW; GLUCOSE,URINE NEGATIVE (NEG); NITRITE,URINE NEGATIVE (NEG); PROTEIN,URINE 30 mg/dL (NEG-TRACE); UROBILINOGEN,URINE 0.2 mg/dL (0.2 mg/dL)
[2017-12-27 16:11] LABS: BACTERIA,URINE FEW /HPF (0-FEW); SQUAMOUS EPITHELIAL CELL,UR FEW /LPF
[2017-12-28] MEDS: IPRATRPIUM/ALBUTEROL 0.5/2.5MG 3 ML NEBU. NEB ×3 (07:45→19:45)
[2017-12-28] MEDS: ACETAMINOPHEN 325 MG TABLET. PO (12:17)
[2017-12-28] MEDS: OSELTAMIVIR 30 MG CAPSULE PO ×2 (12:17→20:39)
[2017-12-28] MEDS: cefTRIAXone IV Push 1 GM VIAL. IVP (13:56)
[2017-12-28] MEDS: methylPREDNISolone SOD SUCC PF 40 MG/ML VIAL. IV ×2 (14:01→20:39)
[2017-12-28] MEDS: AZITHROMYCIN 500 MG in IV NORMAL SALINE 250ML 250 ML IV (14:04)
[2017-12-28] MEDS ORDERED: IPRATRPIUM/ALBUTEROL 0.5/2.5MG 3 ML NEBU. NEB (16:00)
[2017-12-28] MEDS ORDERED: ALBUTEROL SULFATE 2.5 MG/3 ML NEBU. NEB (19:00)
[2017-12-28] MEDS: ATORVASTATIN CALCIUM 10 MG TABLET. PO (20:39)
[2017-12-29] MEDS: methylPREDNISolone SOD SUCC PF 40 MG/ML VIAL. IV ×3 (05:43→21:13)
[2017-12-29] MEDS: IPRATRPIUM/ALBUTEROL 0.5/2.5MG 3 ML NEBU. NEB ×4 (08:17→19:35)
[2017-12-29] MEDS: OSELTAMIVIR 30 MG CAPSULE PO ×2 (08:19→21:09)
[2017-12-29] MEDS: CHOLECALCIFEROL (VITAMIN D3) 1,000 UNIT TABLET PO (08:20)
[2017-12-29] MEDS ORDERED: AZITHRMYCN 500MG IVPB FOR OMNI 250 ML IV (09:00)
[2017-12-29] MEDS: ASPIRIN ENTERIC COATED 81 MG TABLET.DR. PO (09:14)
[2017-12-29] MEDS: ENOXAPARIN 30 MG/0.3 ML SYRINGE. SQ (13:14)
[2017-12-29] MEDS: cefTRIAXone IV Push 1 GM VIAL. IVP (13:15)
[2017-12-29] MEDS: AZITHROMYCIN 500 MG in IV NORMAL SALINE 250ML 250 ML IV (13:18)
[2017-12-29] MEDS: LACTOBACILLUS RHAMNOSUS GG 1 CAPSULE. PO (21:09)
[2017-12-29] MEDS: ZOLPIDEM 5 MG TABLET. PO (21:09)
[2017-12-29] MEDS: ATORVASTATIN CALCIUM 10 MG TABLET. PO (21:09)
[2017-12-30 05:27] LABS: HEMATOCRIT 39.9 % (36.0-47.0); HEMOGLOBIN 13.3 g/dL (12.0-15.5); MEAN CORPUSCULAR HEMOGLOBIN 30 pg (25-35); MEAN CORPUSCULAR HGB CONC 33 g/dL (31-37); MEAN CORPUSCULAR VOLUME 90 fL (79-100); PLATELET COUNT 236 x10^3/uL (140-400); RED BLOOD COUNT 4.46 x10^6/uL (3.50-5.40); RED CELL DISTRIBUTION WIDTH 13.4 % (11.5-14.5)
[2017-12-30 05:49] LABS: ANION GAP 6 (6-14); BLOOD UREA NITROGEN 17 mg/dL (7-20); CALCIUM 8.5 mg/dL (8.5-10.1); CARBON DIOXIDE 30 mmol/L (21-32); CHLORIDE 104 mmol/L (98-107); CREATININE 0.7 mg/dL (0.6-1.0); GFR 79.9; GLUCOSE 179 mg/dL (70-99); POTASSIUM 4.3 mmol/L (3.5-5.1); SODIUM 140 mmol/L (136-145)
[2017-12-30] MEDS: methylPREDNISolone SOD SUCC PF 40 MG/ML VIAL. IV ×3 (06:04→20:12)
[2017-12-30] MEDS: IPRATRPIUM/ALBUTEROL 0.5/2.5MG 3 ML NEBU. NEB ×4 (08:39→19:39)
[2017-12-30] MEDS: OSELTAMIVIR 30 MG CAPSULE PO ×2 (10:15→20:12)
[2017-12-30] MEDS: ASPIRIN ENTERIC COATED 81 MG TABLET.DR. PO (10:15)
[2017-12-30] MEDS: LACTOBACILLUS RHAMNOSUS GG 1 CAPSULE. PO ×2 (10:15→20:11)
[2017-12-30] MEDS: CEFPODOXIME PROXETIL 100 MG TABLET. PO ×2 (10:16→20:11)
[2017-12-30] MEDS: CHOLECALCIFEROL (VITAMIN D3) 1,000 UNIT TABLET PO (10:16)
[2017-12-30] MEDS: ENOXAPARIN 30 MG/0.3 ML SYRINGE. SQ (14:47)
[2017-12-30] MEDS: AZITHROMYCIN 250 MG TABLET. PO (14:48)
[2017-12-30] MEDS: ATORVASTATIN CALCIUM 10 MG TABLET. PO (20:11)
[2017-12-30] MEDS: ZOLPIDEM 5 MG TABLET. PO (20:12)
[2017-12-31] MEDS: methylPREDNISolone SOD SUCC PF 40 MG/ML VIAL. IV (05:49)
[2017-12-31] MEDS: IPRATRPIUM/ALBUTEROL 0.5/2.5MG 3 ML NEBU. NEB ×2 (08:00→11:26)
[2017-12-31] MEDS: CHOLECALCIFEROL (VITAMIN D3) 1,000 UNIT TABLET PO (08:36)
[2017-12-31] MEDS: OSELTAMIVIR 30 MG CAPSULE PO (08:36)
[2017-12-31] MEDS: ASPIRIN ENTERIC COATED 81 MG TABLET.DR. PO (08:36)
[2017-12-31] MEDS: CEFPODOXIME PROXETIL 100 MG TABLET. PO (08:36)
[2017-12-31] MEDS: LACTOBACILLUS RHAMNOSUS GG 1 CAPSULE. PO (08:36)
[2017-12-31] MEDS: ENOXAPARIN 30 MG/0.3 ML SYRINGE. SQ (11:48)
== END 2017-12-31 13:40 | disposition home or self-care (01) | DRG 193 ==
LOC: ER 12:36 → ED HOLD 14:00 → 5 NORTH 17:09
DX: J11.00 Influenza due to unidentified influenza virus with unspecified type of pneumonia (principal); J96.01 Acute respiratory failure with hypoxia; J44.0 Chronic obstructive pulmonary disease with (acute) lower respiratory infection; J44.1 Chronic obstructive pulmonary disease with (acute) exacerbation; J18.9 Pneumonia, unspecified organism; E86.0 Dehydration; I27.20 Pulmonary hypertension, unspecified; I35.0 Nonrheumatic aortic (valve) stenosis; E78.00 Pure hypercholesterolemia, unspecified; E78.5 Hyperlipidemia, unspecified; G47.00 Insomnia, unspecified; I73.9 Peripheral vascular disease, unspecified; M81.0 Age-related osteoporosis without current pathological fracture; Z87.891 Personal history of nicotine dependence; Z89.422 Acquired absence of other left toe(s)
CPT/HCPCS: 36415; 71045; 80048; 80053; 81001; 83605; 83880; 84484; 85025; 85027; 87086; 87804; 87804-59; 93005; 93306; 94618; 94640; 94760; 97161-GP; 99285; J0456; J0690; J0696; J1650; J2920; J2930; J7050; J7620; Q0144

== ENCOUNTER 2020-08-08 09:33 | Emergency (ER) | payer MEDICARE, OTHER ==
[~2020-08-08] VITALS: Ht 160 cm; Wt 44.0 kg
[~2020-08-08 09:33] MED LIST: ALBU2.5V8 INH; ALEN70TA3 PO; ASPI-482 PO; BENZ-8 PO; CEFP100T PO; CHOL100013 PO; IPRA3AMP29 NEB; LACT1CAP19 PO; LEVO500T59 PO; LOVA20TA2 PO; MULT-445 PO; OSEL30CA PO; PRED-220 PO
[2020-08-08 10:25] LABS: BASO % 0 % (0-3); EOS # 0.1 x10^3/uL (0.0-0.7); EOS % 1 % (0-3); HEMATOCRIT 43.6 % (36.0-47.0); HEMOGLOBIN 14.7 g/dL (12.0-15.5); LYMPH # 1.6 x10^3/uL (1.0-4.8); LYMPH % 23 % (24-48); MEAN CORPUSCULAR HEMOGLOBIN 30 pg (25-35); MEAN CORPUSCULAR HGB CONC 34 g/dL (31-37); MEAN CORPUSCULAR VOLUME 89 fL (79-100); MONO # 0.6 x10^3/uL (0.0-1.1); MONO % 10 % (0-9); NEUT # 4.5 x10^3/uL (1.8-7.7); NEUT % 66 % (31-73); PLATELET COUNT 192 x10^3/uL (140-400); RED BLOOD COUNT 4.87 x10^6/uL (3.50-5.40); RED CELL DISTRIBUTION WIDTH 13.9 % (11.5-14.5); WHITE BLOOD COUNT 6.8 x10^3/uL (4.0-11.0)
[2020-08-08 10:27] LABS: BILIRUBIN,URINE NEGATIVE (NEG); CLARITY,URINE CLEAR; COLOR,URINE YELLOW; NITRITE,URINE NEGATIVE (NEG); PH,URINE 5.5 (<5.0-8.0); PROTEIN,URINE 30 mg/dL (NEG-TRACE); UROBILINOGEN,URINE 0.2 mg/dL (0.2 mg/dL)
[2020-08-08 10:33] LABS: AMORPHOUS SEDIMENT,UR PRESENT /HPF; BACTERIA,URINE 0 /HPF (0-FEW); RBC,URINE RARE /HPF (0-2); SQUAMOUS EPITHELIAL CELL,UR OCC /LPF
[2020-08-08 10:34] LABS: PROTHROMBIN TIME PATIENT 11.3 SEC (11.7-14.0)
[2020-08-08 10:39] LABS: CREATININE 1.1 mg/dL (0.6-1.0); GFR 47.1; POTASSIUM 3.5 mmol/L (3.5-5.1)
--- NOTE | 2020-08-08 10:42 | EKG ---
[facility] [address] [place] [address] Test Date: 2020-08-08 Test Time: 09:59:37 Pat Name: AKSHAT HACKETT Department: Room: Gender: F [employer]: : 1935 Requested By: ROSIE VÁZQUEZ Order Number: [id number] Reading MD: Zhen Sinha MD Measurements Intervals [place] Rate: 86 P: 75 MA: 128 QRS: 29 QRSD: 62 T: 40 QT: 348 QTc: 419 Interpretive Statements SINUS RHYTHM Electronically Signed On 08-08-2020 14:14:04 CDT by Zhen Sinha MD
[2020-08-08 10:45] LABS: ALBUMIN 3.3 g/dL (3.4-5.0); ALBUMIN/GLOBULIN RATIO 0.9 (1.0-1.7); MAGNESIUM 2.1 mg/dL (1.8-2.4); TOTAL BILIRUBIN 0.3 mg/dL (0.2-1.0); TOTAL PROTEIN 7.1 g/dL (6.4-8.2)
[2020-08-08] MEDS ORDERED: IV NORMAL SALINE 1000ML BAG 1,000 ML IV ONE (10:45)
--- NOTE | 2020-08-08 10:47 | RAD ---
EXAM: CHEST 1 VIEW History: Shortness of breath, cough COMPARISON: 04/26/2019 TECHNIQUE: Single portable radiograph of the chest FINDINGS: The cardiac silhouette is unremarkable. Coarse interstitial lung markings identified in the bilateral lungs likely increased since prior exam. Hyperinflated lungs. Mild right lung base airspace opacities likely atelectasis or infiltrates. IMPRESSION: 1. Coarse bilateral interstitial lung markings likely chronic interstitial changes. 2. Mild right lung base airspace opacities likely atelectasis or infiltrates. Electronically signed by: Jimmy Wang MD (08/08/2020 10:44 AM) [id number]
--- NOTE | 2020-08-08 12:12 | RAD ---
EXAM: Head CT without contrast. HISTORY: Altered mental status. TECHNIQUE: Computed tomographic images of the head were obtained without contrast. *One or more of the following individualized dose reduction techniques were utilized for this examination: 1. Automated exposure control. 2. Adjustment of the mA and/or kV according to patient size. 3. Use of iterative reconstruction technique. COMPARISON: None. FINDINGS: There is no acute or subacute extra-axial or intraparenchymal hemorrhage. There is no mass effect or midline shift. There is no hydrocephalus. There are areas of decreased attenuation within the cerebral white matter, nonspecific and likely related to chronic small vessel disease. There are right suboccipital craniotomy changes. There is evidence of lens surgery. There is an incidental left luis manuel bullosa. The paranasal sinuses mastoid air cells are clear. There is no suspicious calvarial lesion. IMPRESSION: 1. No acute intracranial finding. Note is made that MRI is more sensitive for acute infarction. 2. Bilateral cerebral white matter changes, likely due to chronic small vessel disease. Electronically signed by: Maryam Fan MD (08/08/2020 12:09 PM) [id number]
[2020-08-08] MEDS ORDERED: methylPREDNISolone SOD SUCC PF 125 MG/2 ML VIAL. IV ONE (13:45)
--- NOTE | 2020-08-08 13:50 | PHYS DOC ---
Past Medical History Past Medical History: COPD, High Cholesterol, Other Additional Past Medical Histor: OSTEOPEROSIS, PVD Past Surgical History: Other Additional Past Surgical Histo: LEFT TOE AMPUTATION, RT EAR SURGERY FOR ACUSTIC NEUROMA, D&C Smoking Status: Former Smoker Alcohol Use: None Drug Use: None General Adult EDM: Chief Complaint: weakness HPI: HPI: Patient is a 85 year old female who was brought here by her stepson for evaluation of generalized weakness, no appetite off and on for 3 weeks. Patient had loss some weight because she could not eat. Patient said whenever she eats she feels nauseous. So she did not want to eat. Patient denies any abdominal pain, no chest pain, no trouble breathing. Patient says she has some congesti on, has some nonproductive cough. Patient says she never felt this way before. Patient denies any headache, no fever. Patient son stated that patient has been sleeping a lot, acting confused some what. Review of Systems: Review of Systems: Constitutional: Denies fever or chills. Positive for feeling weak. Eyes: Denies change in visual acuity. [] HENT: positive for congestion, no sore throat. Respiratory: Positive for cough NO shortness of breath. [] Cardiovascular: Denies chest pain or edema. [] GI: Denies abdominal pain, positive for nausea, no vomiting, bloody stools or diarrhea. [] : Denies dysuria. [] Musculoskeletal: Denies back pain or joint pain. [] Integument: Denies rash. [] Neurologic: Denies headache, focal weakness or sensory changes. [] Endocrine: Denies polyuria or polydipsia. [] Lymphatic: Denies swollen glands. [] Psychiatric: Denies depression or anxiety. [] Heart Score: Risk Factors: Risk Factors: DM, Current or recent (<one month) smoker, HTN, HLP, family history of CAD, obesity. Risk Scores: Score 0 - 3: 2.5% MACE over next 6 weeks - Discharge Home Score 4 - 6: 20.3% MACE over next 6 weeks - Admit for Clinical Observation Score 7 - 10: 72.7% MACE over next 6 weeks - Early Invasive Strategies Current Medications: Current Medications Medications (Trade) Dose Ordered Sig/Maximino Start Time Stop Time Status Last Admin Dose Admin Methylprednisolone Sodium Succinate (SOLU-Medrol 125MG VIAL) 125 mg 1X ONCE 9/8/20 13:45 08/08/20 13:46 DC Sodium Chloride 1,000 ml @ 1,000 mls/hr 1X ONCE 08/08/20 10:45 08/08/20 11:44 DC 08/08/20 10:40 1,000 MLS/HR Allergies: Allergies: Allergies Coded Allergies Type Severity Reaction Last Updated Verified No Known Drug Allergies 03/03/17 No Physical Exam: PE: Constitutional: Well developed, well nourished, no acute distress, non-toxic ap pearance. [] HENT: Normocephalic, atraumatic, bilateral external ears normal, oropharynx moist, no oral exudates, nose normal. [] Eyes: PERRLA, EOMI, conjunctiva normal, no discharge. [] Neck: Normal range of motion, no tenderness, supple, no stridor. [] Cardiovascular:Heart rate regular rhythm, no murmur [] Lungs & Thorax: Bilateral breath sounds clear to auscultation [] Abdomen: Bowel sounds normal, soft, no tenderness, no masses, no pulsatile masses. [] Skin: Warm, dry, no erythema, no rash. [] Back: No tenderness, no CVA tenderness. [] Extremities: No tenderness, no cyanosis, no clubbing, ROM intact, no edema. [] Neurologic: Alert and oriented X 3, normal motor function, normal sensory function, no focal deficits noted. [] Psychologic: Affect normal, judgement normal, mood normal. [] Current Patient Data: Labs: Laboratory Tests Test 08/08/20 10:04 08/08/20 10:12 White Blood Count 6.8 x10^3/uL (4.0-11.0) Red Blood Count 4.87 x10^6/uL (3.50-5.40) Hemoglobin 14.7 g/dL (12.0-15.5) Hematocrit 43.6 % (36.0-47.0) Mean Corpuscular Volume 89 fL (79-100) Mean Corpuscular Hemoglobin 30 pg (25-35) Mean Corpuscular Hemoglobin Concent 34 g/dL (31-37) Red Cell Distribution Width 13.9 % (11.5-14.5) Platelet Count 192 x10^3/uL (140-400) Neutrophils (%) (Auto) 66 % (31-73) Lymphocytes (%) (Auto) 23 % (24-48) L Monocytes (%) (Auto) 10 % (0-9) H Eosinophils (%) (Auto) 1 % (0-3) Basophils (%) (Auto) 0 % (0-3) Neutrophils # (Auto) 4.5 x10^3/uL (1.8-7.7) Lymphocytes # (Auto) 1.6 x10^3/uL (1.0-4.8) Monocytes # (Auto) 0.6 x10^3/uL (0.0-1.1) Eosinophils # (Auto) 0.1 x10^3/uL (0.0-0.7) Basophils # (Auto) 0.0 x10^3/uL (0.0-0.2) Prothrombin Time 11.3 SEC (11.7-14.0) L Prothrombin Time INR 0.9 (0.8-1.1) Activated Partial Thromboplast Time 27 SEC (24-38) Sodium Level 141 mmol/L (136-145) Potassium Level 3.5 mmol/L (3.5-5.1) Chloride Level 102 mmol/L (98-107) Carbon Dioxide Level 32 mmol/L (21-32) Anion Gap 7 (6-14) Blood Urea Nitrogen 18 mg/dL (7-20) Creatinine 1.1 mg/dL (0.6-1.0) H Estimated GFR (Cockcroft-Gault) 47.1 BUN/Creatinine Ratio 16 (6-20) Glucose Level 96 mg/dL (70-99) Lactic Acid Level 1.8 mmol/L (0.4-2.0) Calcium Level 9.0 mg/dL (8.5-10.1) Magnesium Level 2.1 mg/dL (1.8-2.4) Total Bilirubin 0.3 mg/dL (0.2-1.0) Aspartate Amino Transferase (AST) 30 U/L (15-37) Alanine Aminotransferase (ALT) 31 U/L (14-59) Alkaline Phosphatase 70 U/L (46-116) Troponin I Quantitative < 0.017 ng/mL (0.000-0.055) XD-Ggi-C-Type Natriuretic Peptide 126 pg/mL (0-449) Total Protein 7.1 g/dL (6.4-8.2) Albumin 3.3 g/dL (3.4-5.0) L Albumin/Globulin Ratio 0.9 (1.0-1.7) L Lipase 282 U/L (73-393) Urine Collection Type Unknown Urine Color Yellow Urine Clarity Clear Urine pH 5.5 (<5.0-8.0) Urine Specific [place] 1.020 (1.000-1.030) Urine Protein 30 mg/dL (NEG-TRACE) Urine Glucose (UA) Negative mg/dL (NEG) Urine Ketones (Stick) Negative mg/dL (NEG) Urine Blood Negative (NEG) Urine Nitrite Negative (NEG) Urine Bilirubin Negative (NEG) Urine Urobilinogen Dipstick 0.2 mg/dL (0.2 mg/dL) Urine Leukocyte Esterase Negative (NEG) Urine RBC Rare /HPF (0-2) Urine WBC 1-4 /HPF (0-4) Urine Squamous Epithelial Cells Occ /LPF Urine Amorphous Sediment Present /HPF Urine Bacteria 0 /HPF (0-FEW) Urine Mucus Mod /LPF Laboratory Tests 08/08/20 10:04 Laboratory Tests 08/08/20 10:04 Vital Signs: Vital Signs Date Time Temp Pulse Resp B/P (MAP) Pulse Ox O2 Delivery O2 Flow Rate FiO2 08/08/20 11:53 152/64 (93) 96 08/08/20 11:28 70 Room Air 08/08/20 10:58 21 08/08/20 10:05 98.8 98.8 EKG: EKG: []EKG was done at 959, heart rate of 86 bpm, no ST segment elevation. Normal sinus rhythm. Radiology/Procedures: Radiology/Procedures: [][facility] [address] [place] [address] IMAGING REPORT Signed PATIENT: AKSHAT HACKETT ACCOUNT: [id number] : 1935 LOCATION: ER AGE: 85 SEX: F EXAM STATUS: REG ER ORD. PHYSICIAN: ROSIE VÁZQUEZ DO REASON: soa, cough PROCEDURE: PORTABLE CHEST 1V EXAM: CHEST 1 VIEW History: Shortness of breath, cough COMPARISON: 04/26/2019 TECHNIQUE: Single portable radiograph of the chest FINDINGS: The cardiac silhouette is unremarkable. Coarse interstitial lung markings identified in the bilateral lungs likely increased since prior exam. Hyperinflated lungs. Mild right lung base airspace opacities likely atelectasis or infiltrates. IMPRESSION: 1. Coarse bilateral interstitial lung markings likely chronic interstitial changes. 2. Mild right lung base airspace opacities likely atelectasis or infiltrates. Electronically signed by: Jimmy Wang MD (08/08/2020 10:44 AM) [id number] DICTATED and SIGNED BY: JIMMY WANG MD DATE: 08/08/20 1044 [facility] [address] [place], [place] [id number] IMAGING REPORT Signed PATIENT: AKSHAT HACKETT ACCOUNT: [id number] : 1935 LOCATION: ER AGE: 85 SEX: F EXAM STATUS: REG ER ORD. PHYSICIAN: ROSIE VÁZQUEZ DO REASON: AMS PROCEDURE: CT HEAD WO CONTRAST EXAM: Head CT without contrast. HISTORY: Altered mental status. TECHNIQUE: Computed tomographic images of the head were obtained without contrast. *One or more of the following individualized dose reduction techniques were utilized for this examination: 1. Automated exposure control. 2. Adjustment of the mA and/or kV according to patient size. 3. Use of iterative reconstruction technique. COMPARISON: None. FINDINGS: There is no acute or subacute extra-axial or intraparenchymal hemorrhage. There is no mass effect or midline shift. There is no hydrocephalus. There are areas of decreased attenuation within the cerebral white matter, nonspecific and likely related to chronic small vessel disease. There are right suboccipital craniotomy changes. There is evidence of lens surgery. There is an incidental left luis manuel bullosa. The paranasal sinuses mastoid air cells are clear. There is no suspicious calvarial lesion. IMPRESSION: 1. No acute intracranial finding. Note is made that MRI is more sensitive for acute infarction. 2. Bilateral cerebral white matter changes, likely due to chronic small vessel disease. Electronically signed by: Maryam Delcid MD (08/08/2020 12:09 PM) [id number] DICTATED and SIGNED BY: MARYAM DELCID MD DATE: 08/08/20 1208 Course & Med Decision Making: Course & Med Decision Making Pertinent Labs and Imaging studies reviewed. (See chart for details) Patient is an 85-year-old female who was brought here by her stepson for evaluation feeling weak, lost weight, had no appetite, feeling nauseous, has some nasal congestion with nonproductive cough off and on for 3 weeks. Patient chest x-ray showed some mild infiltration on the base of her lung, her vital signs however normal, suspect that she had bronchitis. Patient was given Solu- Medrol in the ER, and discharged home with a prescription for Levaquin. Patient was given IV fluid in ER, she became more awake alert oriented, she feels much better. Patient also was given a prescription for Zofran in case he feels nauseous again. Patient will need to follow-up with her family doctor for further evaluation and treatment. Patient denies any abdominal pain, no fever, therefore there was no need to do imaging of her abdomen area. Dragon Disclaimer: Dragmax Disclaimer: This electronic medical record was generated, in whole or in part, using a voice recognition dictation system. Departure Departure Impression: Primary Impression: Weakness Additional Impressions: Bronchitis Nausea Disposition: 01 HOME, SELF-CARE Condition: STABLE Referrals: REBECCA SINGLETON D.O. (PCP) please follow up with your doctor this week. Patient Instructions: Acute Bronchitis, Nausea, Adult, Weakness Additional Instructions: Thank you for visiting our Emergency Department. We appreciate you trusting us with your care. If any additional problems come up don't hesitate to return to visit us. Please follow up with your primary care provider so they can plan additional care if needed and know about the problem that you had. If symptoms worsen come back to the Emergency Department. Any concerning symptoms that start such as chest pain, shortness of air, weakness or numbness on one side of the body, running high fevers or any other concerning symptoms return to the ER. Scripts Ondansetron Hcl (ZOFRAN) 4 Mg Tablet 1 TAB PO Q6HRS PRN for NAUSEA, #20 TAB Prov: ROSIE VÁZQUEZ DO 08/08/20 Prednisone (PREDNISONE) 20 Mg Tablet 1 TAB PO DAILY, #5 TAB Prov: ROSIE VÁZQUEZ DO 08/08/20 Levofloxacin (LEVOFLOXACIN) 500 Mg Tablet 1 TAB PO DAILY, #7 TAB Prov: ROSIE VÁZQUEZ DO 08/08/20 Justicifation of Admission Dx: Justifications for Admission: Justification of Admission Dx: N/A ROSIE VÁZQUEZ DO Aug 08, 2020 13:50
[2020-08-08] MEDS ORDERED: LEVO500T8 PO (14:12)
[2020-08-08] MEDS ORDERED: PRED20TA PO (14:12)
[2020-08-08] MEDS ORDERED: ONDA4TAB7 PO (14:12)
[2020-08-08 14:23] VITALS: BP 121/62
== END 2020-08-08 14:27 | disposition home or self-care (01) ==
LOC: ER 09:33
DX: J40 Bronchitis, not specified as acute or chronic (principal); R53.1 Weakness; R11.0 Nausea; J44.9 Chronic obstructive pulmonary disease, unspecified; E78.00 Pure hypercholesterolemia, unspecified; Z98.890 Other specified postprocedural states; Z87.891 Personal history of nicotine dependence
CPT/HCPCS: 36415; 70450; 71045; 80053; 81001; 83605; 83690; 83735; 83880; 84484; 85025; 85610; 85730; 87040; 93005; 96361; 96374; 99285; J2930; J7030